=== PATIENT | male | born 1945 | race Caucasian/White ===

== ENCOUNTER 2016-12-21 08:37 | Emergency (ER) | payer MEDICARE, BC ==
[2016-12-21 09:06] VITALS: TEMP 96.9
[2016-12-21] MEDS ORDERED: SODIUM CHLORIDE 0.9% FLUSH 10 ML SOL IV PRN (09:22)
[2016-12-21] MEDS ORDERED: ALBUTEROL NEB SOL 2.5MG/3ML 1 VIAL SOL NEB ONE (09:22)
[2016-12-21] MEDS ORDERED: ALBUTEROL NEB SOL 2.5MG/3ML 1 VIAL SOL ONE (09:30)
[2016-12-21] MEDS ORDERED: ERTAPENEM SODIUM 1 GM PDS ONE (09:36)
[2016-12-21 10:06] LABS: HEMATOCRIT 44 % (39-53); MEAN CORPUSCULAR HGB CONC 35.1 gm/dl (32.0-36.0); MEAN CORPUSCULAR VOLUME 86 fL (80-100)
[2016-12-21 10:14] LABS: ALBUMIN 1.9 gm/dl (3.4-5.0); ALT 22 IU/L (14-63); CALCIUM 8.9 mg/dl (8.5-10.1); GLOM FILT RATE 55 mL/min (>60); SODIUM 130 mMol/L (136-145)
[2016-12-21] MEDS ORDERED: FUROSEMIDE 40 MG SOL IV ONE (10:14)
[2016-12-21] MEDS ORDERED: FUROSEMIDE 40 MG SOL ONE (10:14)
[2016-12-21 10:27] LABS: BASOPHILS % (MANUAL) 0 % (0-3); EOSINOPHILS % (MANUAL) 0 % (0-9); LYMPHOCYTES % (MANUAL) 5 % (10-50)
[2016-12-21] MEDS ORDERED: POTASSIUM CHLORIDE 10 MEQ TER PO ONE (10:27)
[2016-12-21 10:28] LABS: NORMAL RBCS PRESENT
[2016-12-21] MEDS ORDERED: CLOTRIMAZOLE 1% CREAM TOP ONE ×2 (10:42→11:00)
[2016-12-21] MEDS ORDERED: POTASSIUM CHLORIDE 10 MEQ TER ONE (10:52)
[2016-12-21 11:31] VITALS: BP 116/61; PULSE 118; RESP 32; O2SAT 94
[2016-12-22] MEDS ORDERED: ERTAPENEM SODIUM 1 GM PDS 1 GM in SODIUM CHLORIDE 0.9% 50 ML 50 ML IV SCH (09:00)
== END 2016-12-21 11:55 | disposition short-term general hospital (02) | DRG 178 ==
LOC: ED 08:37
DX: J85.0 Gangrene and necrosis of lung (principal); E46 Unspecified protein-calorie malnutrition; N17.9 Acute kidney failure, unspecified; E88.09 Other disorders of plasma-protein metabolism, not elsewhere classified; E87.6 Hypokalemia; J85.1 Abscess of lung with pneumonia; R63.4 Abnormal weight loss; R00.0 Tachycardia, unspecified; R06.02 Shortness of breath
CPT/HCPCS: 71020; 80053; 83880; 84484; 85007; 85027; 87040; 87070; 87205; 93005; 96365; 99285; J1335; J1940; J7603; A6232

== ENCOUNTER 2017-01-03 13:35 | Inpatient (IN) | payer MEDICARE, BC ==
[2017-01-03] MEDS ORDERED: PATIENT EDUCATION 1 MISC PRN (18:21)
[2017-01-03] MEDS ORDERED: ALBUTEROL HFA 60 PUFF/INHALER INH PRN (18:36)
[2017-01-03] MEDS ORDERED: ALBUTEROL NEB SOL 2.5MG/3ML 1 VIAL SOL NEB PRN (18:36)
[2017-01-03] MEDS ORDERED: GUAIFENESIN 200 MG/10 ML SOL PO SCH (18:45)
[2017-01-03] MEDS ORDERED: PIPERACILLIN/TAZOBACT 3.375 GM PDS IV ONE (18:53)
[2017-01-03] MEDS ORDERED: SODIUM CHLORIDE 0.9% 100 ML 100 ML IV ONE (18:53)
[2017-01-03] MEDS ORDERED: PIPERACILLIN/TAZOBACT 3.375 GM PDS IV SCH (19:00)
[2017-01-03] MEDS: HUMALOG PEN 100 U/ML SC SCH ×2 (20:27→21:33)
[2017-01-03] MEDS: SODIUM CHLORIDE 0.9% FLUSH 10 ML SOL IV SCH (20:41)
[2017-01-03] MEDS: PIPERACILLIN/TAZOBACT 3.375 GM 3 GM in SODIUM CHLORIDE 0.9% 100 ML 100 ML IV SCH (20:41)
[2017-01-03] MEDS: TAMSULOSIN HYDROCHLORIDE 0.4 MG CAP PO SCH (20:42)
[2017-01-03] MEDS: ATORVASTATIN 10 MG TAB PO SCH (20:42)
[2017-01-03] MEDS: ALBUTEROL/IPRATROPIUM 1 VIAL SOL INH SCH (20:44)
[2017-01-03] MEDS: FLUTICASONE/SALMETEROL 500/50 60 PUFF DSK INH SCH (20:54)
[2017-01-03] MEDS: GUAIFENESIN 600 MG PO SCH ×2 (20:55→21:46)
[2017-01-03] MEDS ORDERED: FUROSEMIDE 40 MG TAB PO SCH (21:00)
[2017-01-04] MEDS ORDERED: PIPERACILLIN/TAZOBACT 3.375 GM PDS IV ONE ×4 (00:39→18:13)
[2017-01-04] MEDS ORDERED: SODIUM CHLORIDE 0.9% 100 ML 100 ML IV ONE ×4 (00:40→18:13)
[2017-01-04] MEDS: SODIUM CHLORIDE 0.9% FLUSH 10 ML SOL IV SCH ×5 (01:05→18:57)
[2017-01-04] MEDS: PIPERACILLIN/TAZOBACT 3.375 GM 3 GM in SODIUM CHLORIDE 0.9% 100 ML 100 ML IV SCH ×2 (01:10→01:13)
[2017-01-04] MEDS: PIPERACILLIN/TAZOBACT 3.375 GM 3.375 GM in SODIUM CHLORIDE 0.9% 100 ML 100 ML IV SCH ×4 (01:14→18:57)
[2017-01-04] MEDS: HUMALOG PEN 100 U/ML SC SCH ×4 (06:57→21:01)
[2017-01-04] MEDS ORDERED: FUROSEMIDE 40 MG TAB PO SCH (09:00)
[2017-01-04] MEDS: FLUTICASONE/SALMETEROL 500/50 60 PUFF DSK INH SCH ×2 (09:16→20:31)
[2017-01-04] MEDS: FLUTICASONE PROPIONATE SPR NAS SCH (09:17)
[2017-01-04] MEDS: ASPIRIN EC 81 MG PO SCH (09:17)
[2017-01-04] MEDS: GUAIFENESIN 600 MG PO SCH ×2 (09:17→20:31)
[2017-01-04] MEDS: LORATADINE 10 MG TAB PO SCH (09:18)
[2017-01-04] MEDS: FUROSEMIDE 40 MG TAB PO SCH ×2 (09:19→13:26)
[2017-01-04] MEDS: MULTIVITAMIN2 1 EA TAB PO SCH (09:19)
[2017-01-04] MEDS: METOPROLOL TARTRATE 25 MG TAB PO SCH ×2 (09:24→20:32)
[2017-01-04] MEDS: ALBUTEROL/IPRATROPIUM 1 VIAL SOL INH SCH ×4 (09:25→20:43)
[2017-01-04] MEDS: BUPROPION XL 150 MG T24 PO SCH (11:53)
[2017-01-04] MEDS: TAMSULOSIN HYDROCHLORIDE 0.4 MG CAP PO SCH (20:31)
[2017-01-04] MEDS: ATORVASTATIN 10 MG TAB PO SCH (20:32)
[2017-01-05] MEDS ORDERED: SODIUM CHLORIDE 0.9% 100 ML 100 ML IV ONE ×4 (01:28→18:49)
[2017-01-05] MEDS ORDERED: PIPERACILLIN/TAZOBACT 3.375 GM PDS IV ONE ×4 (01:28→18:49)
[2017-01-05] MEDS: PIPERACILLIN/TAZOBACT 3.375 GM 3.375 GM in SODIUM CHLORIDE 0.9% 100 ML 100 ML IV SCH ×4 (01:44→19:01)
[2017-01-05] MEDS: SODIUM CHLORIDE 0.9% FLUSH 10 ML SOL IV SCH ×4 (02:15→20:20)
[2017-01-05] MEDS: HUMALOG PEN 100 U/ML SC SCH ×4 (06:31→20:21)
[2017-01-05] MEDS: BUPROPION XL 150 MG T24 PO SCH (09:07)
[2017-01-05] MEDS: FLUTICASONE/SALMETEROL 500/50 60 PUFF DSK INH SCH ×2 (09:07→20:13)
[2017-01-05] MEDS: METOPROLOL TARTRATE 25 MG TAB PO SCH ×2 (09:08→20:15)
[2017-01-05] MEDS: LORATADINE 10 MG TAB PO SCH (09:09)
[2017-01-05] MEDS: MULTIVITAMIN2 1 EA TAB PO SCH (09:10)
[2017-01-05] MEDS: FLUTICASONE PROPIONATE SPR NAS SCH (09:10)
[2017-01-05] MEDS: ASPIRIN EC 81 MG PO SCH (09:10)
[2017-01-05] MEDS: GUAIFENESIN 600 MG PO SCH ×2 (09:11→20:14)
[2017-01-05] MEDS: FUROSEMIDE 40 MG TAB PO SCH ×2 (09:11→14:07)
[2017-01-05] MEDS: ALBUTEROL/IPRATROPIUM 1 VIAL SOL INH SCH ×4 (09:24→20:13)
[2017-01-05] MEDS: TAMSULOSIN HYDROCHLORIDE 0.4 MG CAP PO SCH (20:14)
[2017-01-05] MEDS: ATORVASTATIN 10 MG TAB PO SCH (20:15)
[2017-01-06] MEDS ORDERED: PIPERACILLIN/TAZOBACT 3.375 GM PDS IV ONE ×4 (00:48→18:32)
[2017-01-06] MEDS ORDERED: SODIUM CHLORIDE 0.9% 100 ML 100 ML IV ONE ×4 (00:48→18:32)
[2017-01-06] MEDS: PIPERACILLIN/TAZOBACT 3.375 GM 3.375 GM in SODIUM CHLORIDE 0.9% 100 ML 100 ML IV SCH ×4 (00:57→18:59)
[2017-01-06] MEDS: SODIUM CHLORIDE 0.9% FLUSH 10 ML SOL IV SCH ×6 (00:58→20:13)
[2017-01-06] MEDS: HUMALOG PEN 100 U/ML SC SCH ×4 (06:44→20:17)
[2017-01-06] MEDS: FLUTICASONE PROPIONATE SPR NAS SCH (09:29)
[2017-01-06] MEDS: FLUTICASONE/SALMETEROL 500/50 60 PUFF DSK INH SCH ×2 (09:29→20:11)
[2017-01-06] MEDS: GUAIFENESIN 600 MG PO SCH ×2 (09:29→20:11)
[2017-01-06] MEDS: METOPROLOL TARTRATE 25 MG TAB PO SCH ×2 (09:30→20:12)
[2017-01-06] MEDS: BUPROPION XL 150 MG T24 PO SCH (09:30)
[2017-01-06] MEDS: LORATADINE 10 MG TAB PO SCH (09:30)
[2017-01-06] MEDS: FUROSEMIDE 40 MG TAB PO SCH ×2 (09:31→13:37)
[2017-01-06] MEDS: ASPIRIN EC 81 MG PO SCH (09:31)
[2017-01-06] MEDS: MULTIVITAMIN2 1 EA TAB PO SCH (09:32)
[2017-01-06] MEDS: ALBUTEROL/IPRATROPIUM 1 VIAL SOL INH SCH ×4 (09:32→20:10)
[2017-01-06] MEDS: ATORVASTATIN 10 MG TAB PO SCH (20:11)
[2017-01-06] MEDS: TAMSULOSIN HYDROCHLORIDE 0.4 MG CAP PO SCH (20:11)
[2017-01-07] MEDS: SODIUM CHLORIDE 0.9% FLUSH 10 ML SOL IV SCH ×5 (00:43→19:09)
[2017-01-07] MEDS: PIPERACILLIN/TAZOBACT 3.375 GM 3.375 GM in SODIUM CHLORIDE 0.9% 100 ML 100 ML IV SCH ×4 (00:43→19:09)
[2017-01-07] MEDS ORDERED: SODIUM CHLORIDE 0.9% 100 ML 100 ML IV ONE ×3 (06:26→13:02)
[2017-01-07] MEDS ORDERED: PIPERACILLIN/TAZOBACT 3.375 GM PDS IV ONE ×4 (06:26→18:54)
[2017-01-07] MEDS: HUMALOG PEN 100 U/ML SC SCH ×4 (06:43→20:16)
[2017-01-07] MEDS: ALBUTEROL/IPRATROPIUM 1 VIAL SOL INH SCH ×4 (09:15→20:10)
[2017-01-07] MEDS: FLUTICASONE PROPIONATE SPR NAS SCH (09:26)
[2017-01-07] MEDS: FLUTICASONE/SALMETEROL 500/50 60 PUFF DSK INH SCH ×2 (09:26→20:12)
[2017-01-07] MEDS: METOPROLOL TARTRATE 25 MG TAB PO SCH ×2 (09:27→20:13)
[2017-01-07] MEDS: GUAIFENESIN 600 MG PO SCH ×2 (09:27→20:12)
[2017-01-07] MEDS: MULTIVITAMIN2 1 EA TAB PO SCH (09:27)
[2017-01-07] MEDS: BUPROPION XL 150 MG T24 PO SCH (09:28)
[2017-01-07] MEDS: LORATADINE 10 MG TAB PO SCH (09:29)
[2017-01-07] MEDS: FUROSEMIDE 40 MG TAB PO SCH ×2 (09:29→13:16)
[2017-01-07] MEDS: ASPIRIN EC 81 MG PO SCH (09:30)
[2017-01-07 11:16] LABS: APPEARANCE,URINE Clear; BILIRUBIN,URINE NEGATIVE (NEGATIVE); COLOR,URINE Yellow; GLUCOSE, URINE (UA) NEGATIVE (NEGATIVE); KETONES,URINE NEGATIVE (NEGATIVE); LEUKOCYTE ESTERASE ,URINE NEGATIVE (NEGATIVE); NITRATE,URINE NEGATIVE (NEGATIVE); OCCULT BLOOD,URINE TRACE INTACT (NEG-TRACE); UROBILINOGEN,URINE 0.2 (0.2-1.0 EU)
[2017-01-07 11:23] LABS: RBC,URINE 0-2 (0-3AV/HPF); WBC,URINE 0-2 (0-5AV/HPF)
[2017-01-07] MEDS: TAMSULOSIN HYDROCHLORIDE 0.4 MG CAP PO SCH (20:12)
[2017-01-07] MEDS: ATORVASTATIN 10 MG TAB PO SCH (20:12)
[2017-01-08] MEDS ORDERED: PIPERACILLIN/TAZOBACT 3.375 GM PDS IV ONE ×4 (00:35→19:51)
[2017-01-08] MEDS ORDERED: SODIUM CHLORIDE 0.9% 100 ML 100 ML IV ONE ×4 (00:35→19:51)
[2017-01-08] MEDS: SODIUM CHLORIDE 0.9% FLUSH 10 ML SOL IV SCH ×6 (02:11→20:00)
[2017-01-08] MEDS: PIPERACILLIN/TAZOBACT 3.375 GM 3.375 GM in SODIUM CHLORIDE 0.9% 100 ML 100 ML IV SCH ×4 (02:11→20:00)
[2017-01-08] MEDS: HUMALOG PEN 100 U/ML SC SCH ×4 (07:03→20:37)
[2017-01-08 07:39] LABS: CALCIUM 8.3 mg/dl (8.5-10.1)
[2017-01-08 07:41] LABS: POTASSIUM 2.5 mMol/L (3.5-5.1)
[2017-01-08 07:46] LABS: BASOPHILS % (AUTO) 2 % (0-3); EOSINOPHILS % (AUTO) 2 % (0-9); HEMATOCRIT 34 % (39-53); MEAN CORPUSCULAR HGB CONC 35.4 gm/dl (32.0-36.0); MEAN CORPUSCULAR VOLUME 84 fL (80-100); MONOCYTES % (AUTO) 9.1 % (0-12); NEUTROPHILS % (AUTO) 61.1 % (37-80)
[2017-01-08] MEDS ORDERED: POTASSIUM CHLORIDE 2 MEQ/ML SOL IV SCH ×2 (08:15→16:30)
[2017-01-08] MEDS: FLUTICASONE/SALMETEROL 500/50 60 PUFF DSK INH SCH ×2 (08:34→20:05)
[2017-01-08] MEDS: ALBUTEROL/IPRATROPIUM 1 VIAL SOL INH SCH ×4 (08:38→20:18)
[2017-01-08] MEDS: FLUTICASONE PROPIONATE SPR NAS SCH (08:50)
[2017-01-08] MEDS: MULTIVITAMIN2 1 EA TAB PO SCH (08:50)
[2017-01-08] MEDS: ASPIRIN EC 81 MG PO SCH (08:50)
[2017-01-08] MEDS: LORATADINE 10 MG TAB PO SCH (08:50)
[2017-01-08] MEDS: BUPROPION XL 150 MG T24 PO SCH (08:51)
[2017-01-08] MEDS: METOPROLOL TARTRATE 25 MG TAB PO SCH ×2 (08:51→20:07)
[2017-01-08] MEDS: FUROSEMIDE 40 MG TAB PO SCH ×2 (08:52→14:12)
[2017-01-08] MEDS: GUAIFENESIN 600 MG PO SCH ×2 (08:53→20:45)
[2017-01-08] MEDS: POTASSIUM CHLORIDE 10 MEQ TER PO SCH ×2 (09:08→20:06)
[2017-01-08] MEDS ORDERED: POTASSIUM CHLORIDE 10 MEQ TER PO ONE (16:00)
[2017-01-08] MEDS ORDERED: POTASSIUM CHLORIDE 2 MEQ/ML SOL IV ONE (16:00)
[2017-01-08] MEDS: TAMSULOSIN HYDROCHLORIDE 0.4 MG CAP PO SCH (20:06)
[2017-01-08] MEDS: ATORVASTATIN 10 MG TAB PO SCH (20:07)
[2017-01-09] MEDS ORDERED: PIPERACILLIN/TAZOBACT 3.375 GM PDS IV ONE ×4 (01:21→19:46)
[2017-01-09] MEDS ORDERED: SODIUM CHLORIDE 0.9% 100 ML 100 ML IV ONE ×4 (01:21→19:46)
[2017-01-09] MEDS: PIPERACILLIN/TAZOBACT 3.375 GM 3.375 GM in SODIUM CHLORIDE 0.9% 100 ML 100 ML IV SCH ×4 (01:26→20:02)
[2017-01-09] MEDS: SODIUM CHLORIDE 0.9% FLUSH 10 ML SOL IV SCH ×4 (01:27→20:01)
[2017-01-09] MEDS: HUMALOG PEN 100 U/ML SC SCH ×4 (06:08→20:23)
[2017-01-09] MEDS: POTASSIUM CHLORIDE 10 MEQ TER PO SCH ×2 (09:27→20:06)
[2017-01-09] MEDS: ASPIRIN EC 81 MG PO SCH (09:27)
[2017-01-09] MEDS: MULTIVITAMIN2 1 EA TAB PO SCH (09:27)
[2017-01-09] MEDS: LORATADINE 10 MG TAB PO SCH (09:28)
[2017-01-09] MEDS: METOPROLOL TARTRATE 25 MG TAB PO SCH ×2 (09:28→20:23)
[2017-01-09] MEDS: GUAIFENESIN 600 MG PO SCH ×2 (09:29→20:05)
[2017-01-09] MEDS: ALBUTEROL/IPRATROPIUM 1 VIAL SOL INH SCH ×4 (09:29→20:04)
[2017-01-09] MEDS: FLUTICASONE PROPIONATE SPR NAS SCH (09:29)
[2017-01-09] MEDS: FUROSEMIDE 40 MG TAB PO SCH ×3 (09:34→12:57)
[2017-01-09] MEDS: OXYBUTYNIN CHLORIDE 5 MG TAB PO SCH ×2 (09:34→20:03)
[2017-01-09] MEDS: BUPROPION XL 300 MG T24 PO SCH (11:44)
[2017-01-09] MEDS: FLUTICASONE/SALMETEROL 500/50 60 PUFF DSK INH SCH ×2 (12:57→20:01)
[2017-01-09] MEDS: TAMSULOSIN HYDROCHLORIDE 0.4 MG CAP PO SCH (20:04)
[2017-01-09] MEDS: ATORVASTATIN 10 MG TAB PO SCH (20:06)
[2017-01-10] MEDS ORDERED: PIPERACILLIN/TAZOBACT 3.375 GM PDS IV ONE ×4 (00:17→18:39)
[2017-01-10] MEDS ORDERED: SODIUM CHLORIDE 0.9% 100 ML 100 ML IV ONE ×2 (00:17→06:22)
[2017-01-10] MEDS: PIPERACILLIN/TAZOBACT 3.375 GM 3.375 GM in SODIUM CHLORIDE 0.9% 100 ML 100 ML IV SCH ×4 (01:12→18:51)
[2017-01-10] MEDS: SODIUM CHLORIDE 0.9% FLUSH 10 ML SOL IV SCH ×5 (01:12→18:51)
[2017-01-10] MEDS: HUMALOG PEN 100 U/ML SC SCH ×4 (06:09→20:45)
[2017-01-10 07:41] LABS: CALCIUM 8.5 mg/dl (8.5-10.1); POTASSIUM 3.3 mMol/L (3.5-5.1)
[2017-01-10] MEDS: OXYBUTYNIN CHLORIDE 5 MG TAB PO SCH ×2 (08:57→20:44)
[2017-01-10] MEDS: FUROSEMIDE 40 MG TAB PO SCH ×2 (08:57→14:16)
[2017-01-10] MEDS: POTASSIUM CHLORIDE 10 MEQ TER PO SCH ×2 (08:57→20:46)
[2017-01-10] MEDS: LORATADINE 10 MG TAB PO SCH (08:57)
[2017-01-10] MEDS: METOPROLOL TARTRATE 25 MG TAB PO SCH ×2 (08:57→20:46)
[2017-01-10] MEDS: GUAIFENESIN 600 MG PO SCH ×2 (08:58→20:45)
[2017-01-10] MEDS: BUPROPION XL 300 MG T24 PO SCH (08:58)
[2017-01-10] MEDS: FLUTICASONE PROPIONATE SPR NAS SCH (08:58)
[2017-01-10] MEDS: MULTIVITAMIN2 1 EA TAB PO SCH (08:58)
[2017-01-10] MEDS: ASPIRIN EC 81 MG PO SCH (08:58)
[2017-01-10] MEDS: FLUTICASONE/SALMETEROL 500/50 60 PUFF DSK INH SCH ×2 (09:01→20:43)
[2017-01-10] MEDS: ALBUTEROL/IPRATROPIUM 1 VIAL SOL INH SCH ×4 (09:01→20:44)
[2017-01-10] MEDS: TAMSULOSIN HYDROCHLORIDE 0.4 MG CAP PO SCH (20:45)
[2017-01-10] MEDS: ATORVASTATIN 10 MG TAB PO SCH (20:47)
[2017-01-11] MEDS ORDERED: PIPERACILLIN/TAZOBACT 3.375 GM PDS IV ONE ×4 (00:41→17:04)
[2017-01-11] MEDS ORDERED: SODIUM CHLORIDE 0.9% 100 ML 100 ML IV ONE ×4 (00:41→17:04)
[2017-01-11] MEDS: PIPERACILLIN/TAZOBACT 3.375 GM 3.375 GM in SODIUM CHLORIDE 0.9% 100 ML 100 ML IV SCH ×4 (00:57→18:19)
[2017-01-11] MEDS: SODIUM CHLORIDE 0.9% FLUSH 10 ML SOL IV SCH ×4 (03:25→18:19)
[2017-01-11] MEDS: ACETAMINOPHEN 325 MG PO PRN (03:29)
[2017-01-11] MEDS: HUMALOG PEN 100 U/ML SC SCH ×4 (06:59→20:29)
[2017-01-11 07:40] LABS: BASOPHILS % (AUTO) 2 % (0-3); EOSINOPHILS % (AUTO) 2 % (0-9); HEMATOCRIT 32 % (39-53); MEAN CORPUSCULAR HGB CONC 35.7 gm/dl (32.0-36.0); MEAN CORPUSCULAR VOLUME 85 fL (80-100); MONOCYTES % (AUTO) 6.6 % (0-12); NEUTROPHILS % (AUTO) 68.1 % (37-80)
[2017-01-11] MEDS: FLUTICASONE/SALMETEROL 500/50 60 PUFF DSK INH SCH ×2 (09:18→20:27)
[2017-01-11] MEDS: ALBUTEROL/IPRATROPIUM 1 VIAL SOL INH SCH ×4 (09:18→20:29)
[2017-01-11] MEDS: GUAIFENESIN 600 MG PO SCH ×2 (09:21→20:28)
[2017-01-11] MEDS: FLUTICASONE PROPIONATE SPR NAS SCH (09:22)
[2017-01-11] MEDS: ASPIRIN EC 81 MG PO SCH (09:22)
[2017-01-11] MEDS: LORATADINE 10 MG TAB PO SCH (09:22)
[2017-01-11] MEDS: METOPROLOL TARTRATE 25 MG TAB PO SCH ×2 (09:23→20:29)
[2017-01-11] MEDS: MULTIVITAMIN2 1 EA TAB PO SCH (09:23)
[2017-01-11] MEDS: OXYBUTYNIN CHLORIDE 5 MG TAB PO SCH ×2 (09:25→20:27)
[2017-01-11] MEDS: FUROSEMIDE 40 MG TAB PO SCH ×2 (09:25→12:02)
[2017-01-11] MEDS: BUPROPION XL 300 MG T24 PO SCH (09:25)
[2017-01-11] MEDS: POTASSIUM CHLORIDE 10 MEQ TER PO SCH ×2 (09:28→20:29)
[2017-01-11] MEDS: TAMSULOSIN HYDROCHLORIDE 0.4 MG CAP PO SCH (20:28)
[2017-01-11] MEDS: ATORVASTATIN 10 MG TAB PO SCH (20:29)
[2017-01-12] MEDS ORDERED: SODIUM CHLORIDE 0.9% 100 ML 100 ML IV ONE ×5 (01:03→23:51)
[2017-01-12] MEDS ORDERED: PIPERACILLIN/TAZOBACT 3.375 GM PDS IV ONE ×5 (01:03→23:51)
[2017-01-12] MEDS: PIPERACILLIN/TAZOBACT 3.375 GM 3.375 GM in SODIUM CHLORIDE 0.9% 100 ML 100 ML IV SCH ×4 (01:09→19:43)
[2017-01-12] MEDS: SODIUM CHLORIDE 0.9% FLUSH 10 ML SOL IV SCH ×5 (01:20→19:44)
[2017-01-12] MEDS: HUMALOG PEN 100 U/ML SC SCH ×4 (06:43→20:48)
[2017-01-12] MEDS: FUROSEMIDE 40 MG TAB PO SCH ×2 (08:20→12:01)
[2017-01-12] MEDS: OXYBUTYNIN CHLORIDE 5 MG TAB PO SCH ×2 (08:39→20:20)
[2017-01-12] MEDS: LORATADINE 10 MG TAB PO SCH (08:39)
[2017-01-12] MEDS: ASPIRIN EC 81 MG PO SCH (08:39)
[2017-01-12] MEDS: POTASSIUM CHLORIDE 10 MEQ TER PO SCH ×2 (08:39→20:21)
[2017-01-12] MEDS: METOPROLOL TARTRATE 25 MG TAB PO SCH ×2 (08:40→20:21)
[2017-01-12] MEDS: BUPROPION XL 300 MG T24 PO SCH (08:43)
[2017-01-12] MEDS: MULTIVITAMIN2 1 EA TAB PO SCH (08:43)
[2017-01-12] MEDS: GUAIFENESIN 600 MG PO SCH ×2 (08:44→20:47)
[2017-01-12] MEDS: FLUTICASONE PROPIONATE SPR NAS SCH (08:46)
[2017-01-12] MEDS: ALBUTEROL/IPRATROPIUM 1 VIAL SOL INH SCH ×4 (08:57→20:30)
[2017-01-12] MEDS: FLUTICASONE/SALMETEROL 500/50 60 PUFF DSK INH SCH ×2 (09:02→20:18)
[2017-01-12] MEDS: SODIUM CHLORIDE 0.9% FLUSH 10 ML SOL IV PRN (20:17)
[2017-01-12] MEDS: TAMSULOSIN HYDROCHLORIDE 0.4 MG CAP PO SCH (20:20)
[2017-01-12] MEDS: ATORVASTATIN 10 MG TAB PO SCH (20:21)
[2017-01-13] MEDS: SODIUM CHLORIDE 0.9% FLUSH 10 ML SOL IV SCH ×4 (01:28→20:02)
[2017-01-13] MEDS: PIPERACILLIN/TAZOBACT 3.375 GM 3.375 GM in SODIUM CHLORIDE 0.9% 100 ML 100 ML IV SCH ×4 (01:28→19:54)
[2017-01-13] MEDS ORDERED: SODIUM CHLORIDE 0.9% 100 ML 100 ML IV ONE ×3 (05:47→19:38)
[2017-01-13] MEDS ORDERED: PIPERACILLIN/TAZOBACT 3.375 GM PDS IV ONE ×3 (05:47→19:38)
[2017-01-13] MEDS: HUMALOG PEN 100 U/ML SC SCH ×4 (06:28→20:07)
[2017-01-13] MEDS: GUAIFENESIN 600 MG PO SCH ×2 (08:35→20:11)
[2017-01-13] MEDS: POTASSIUM CHLORIDE 10 MEQ TER PO SCH ×2 (08:36→20:07)
[2017-01-13] MEDS: ASPIRIN EC 81 MG PO SCH (08:36)
[2017-01-13] MEDS: OXYBUTYNIN CHLORIDE 5 MG TAB PO SCH ×2 (08:36→20:05)
[2017-01-13] MEDS: FLUTICASONE PROPIONATE SPR NAS SCH (08:37)
[2017-01-13] MEDS: MULTIVITAMIN2 1 EA TAB PO SCH (08:38)
[2017-01-13] MEDS: FUROSEMIDE 40 MG TAB PO SCH ×2 (08:38→12:10)
[2017-01-13] MEDS: LORATADINE 10 MG TAB PO SCH (08:38)
[2017-01-13] MEDS: BUPROPION XL 300 MG T24 PO SCH (08:38)
[2017-01-13] MEDS: METOPROLOL TARTRATE 25 MG TAB PO SCH ×2 (08:39→20:08)
[2017-01-13] MEDS: ALBUTEROL/IPRATROPIUM 1 VIAL SOL INH SCH ×4 (08:40→20:03)
[2017-01-13] MEDS: FLUTICASONE/SALMETEROL 500/50 60 PUFF DSK INH SCH ×2 (08:46→20:03)
[2017-01-13] MEDS: TAMSULOSIN HYDROCHLORIDE 0.4 MG CAP PO SCH (20:06)
[2017-01-13] MEDS: ATORVASTATIN 10 MG TAB PO SCH (20:08)
[2017-01-14] MEDS ORDERED: SODIUM CHLORIDE 0.9% 100 ML 100 ML IV ONE ×4 (01:48→17:47)
[2017-01-14] MEDS ORDERED: PIPERACILLIN/TAZOBACT 3.375 GM PDS IV ONE ×4 (01:48→17:47)
[2017-01-14] MEDS: PIPERACILLIN/TAZOBACT 3.375 GM 3.375 GM in SODIUM CHLORIDE 0.9% 100 ML 100 ML IV SCH ×4 (01:54→18:15)
[2017-01-14] MEDS: SODIUM CHLORIDE 0.9% FLUSH 10 ML SOL IV SCH ×4 (01:57→18:15)
[2017-01-14] MEDS: HUMALOG PEN 100 U/ML SC SCH ×3 (06:07→16:00)
[2017-01-14] MEDS: FUROSEMIDE 40 MG TAB PO SCH ×2 (07:28→12:04)
[2017-01-14] MEDS: ASPIRIN EC 81 MG PO SCH (09:06)
[2017-01-14] MEDS: FLUTICASONE/SALMETEROL 500/50 60 PUFF DSK INH SCH ×2 (09:06→20:52)
[2017-01-14] MEDS: OXYBUTYNIN CHLORIDE 5 MG TAB PO SCH ×2 (09:07→20:53)
[2017-01-14] MEDS: LORATADINE 10 MG TAB PO SCH (09:07)
[2017-01-14] MEDS: FLUTICASONE PROPIONATE SPR NAS SCH (09:09)
[2017-01-14] MEDS: GUAIFENESIN 600 MG PO SCH ×2 (09:10→20:54)
[2017-01-14] MEDS: POTASSIUM CHLORIDE 10 MEQ TER PO SCH ×2 (09:10→20:54)
[2017-01-14] MEDS: ALBUTEROL/IPRATROPIUM 1 VIAL SOL INH SCH ×4 (09:11→20:56)
[2017-01-14] MEDS: MULTIVITAMIN2 1 EA TAB PO SCH (09:11)
[2017-01-14] MEDS: METOPROLOL TARTRATE 25 MG TAB PO SCH ×2 (09:12→20:55)
[2017-01-14] MEDS: BUPROPION XL 300 MG T24 PO SCH (09:13)
[2017-01-14] MEDS: TAMSULOSIN HYDROCHLORIDE 0.4 MG CAP PO SCH (20:53)
[2017-01-14] MEDS: ATORVASTATIN 10 MG TAB PO SCH (20:54)
[2017-01-15] MEDS: HUMALOG PEN 100 U/ML SC SCH ×2 (01:49→06:28)
[2017-01-15] MEDS: SODIUM CHLORIDE 0.9% FLUSH 10 ML SOL IV SCH ×4 (01:50→18:50)
[2017-01-15] MEDS: PIPERACILLIN/TAZOBACT 3.375 GM 3.375 GM in SODIUM CHLORIDE 0.9% 100 ML 100 ML IV SCH ×4 (01:50→18:50)
[2017-01-15 07:48] LABS: BASOPHILS % (AUTO) 1 % (0-3); EOSINOPHILS % (AUTO) 1 % (0-9); HEMATOCRIT 33 % (39-53); MEAN CORPUSCULAR VOLUME 85 fL (80-100); MONOCYTES % (AUTO) 8.1 % (0-12); NEUTROPHILS % (AUTO) 73.2 % (37-80)
[2017-01-15 08:53] LABS: CALCIUM 8.6 mg/dl (8.5-10.1); POTASSIUM 4.2 mMol/L (3.5-5.1)
[2017-01-15] MEDS: FLUTICASONE/SALMETEROL 500/50 60 PUFF DSK INH SCH ×2 (09:15→20:01)
[2017-01-15] MEDS: FUROSEMIDE 40 MG TAB PO SCH ×2 (09:15→12:02)
[2017-01-15] MEDS: ASPIRIN EC 81 MG PO SCH (09:16)
[2017-01-15] MEDS: FLUTICASONE PROPIONATE SPR NAS SCH (09:17)
[2017-01-15] MEDS: GUAIFENESIN 600 MG PO SCH ×2 (09:17→20:03)
[2017-01-15] MEDS: POTASSIUM CHLORIDE 10 MEQ TER PO SCH ×2 (09:18→20:03)
[2017-01-15] MEDS: METOPROLOL TARTRATE 25 MG TAB PO SCH ×2 (09:18→20:05)
[2017-01-15] MEDS: MULTIVITAMIN2 1 EA TAB PO SCH (09:19)
[2017-01-15] MEDS: ALBUTEROL/IPRATROPIUM 1 VIAL SOL INH SCH ×4 (09:22→20:02)
[2017-01-15] MEDS: BUPROPION XL 300 MG T24 PO SCH (12:01)
[2017-01-15] MEDS ORDERED: PIPERACILLIN/TAZOBACT 3.375 GM PDS IV ONE ×2 (13:31→18:25)
[2017-01-15] MEDS ORDERED: SODIUM CHLORIDE 0.9% 100 ML 100 ML IV ONE ×2 (13:31→18:25)
[2017-01-15] MEDS: TAMSULOSIN HYDROCHLORIDE 0.4 MG CAP PO SCH (20:03)
[2017-01-15] MEDS: ATORVASTATIN 10 MG TAB PO SCH (20:04)
[2017-01-15] MEDS: SODIUM CHLORIDE 0.9% FLUSH 10 ML SOL IV PRN (20:05)
[2017-01-16] MEDS ORDERED: PIPERACILLIN/TAZOBACT 3.375 GM PDS IV ONE ×4 (00:19→17:10)
[2017-01-16] MEDS ORDERED: SODIUM CHLORIDE 0.9% 100 ML 100 ML IV ONE ×4 (00:19→17:10)
[2017-01-16] MEDS: PIPERACILLIN/TAZOBACT 3.375 GM 3.375 GM in SODIUM CHLORIDE 0.9% 100 ML 100 ML IV SCH ×4 (00:48→19:02)
[2017-01-16] MEDS: SODIUM CHLORIDE 0.9% FLUSH 10 ML SOL IV SCH ×4 (00:48→19:02)
[2017-01-16] MEDS: GUAIFENESIN 600 MG PO SCH ×2 (08:57→20:39)
[2017-01-16] MEDS: FLUTICASONE/SALMETEROL 500/50 60 PUFF DSK INH SCH ×2 (08:57→20:48)
[2017-01-16] MEDS: ASPIRIN EC 81 MG PO SCH (08:58)
[2017-01-16] MEDS: MULTIVITAMIN2 1 EA TAB PO SCH (08:59)
[2017-01-16] MEDS: METOPROLOL TARTRATE 25 MG TAB PO SCH ×2 (08:59→20:41)
[2017-01-16] MEDS: FLUTICASONE PROPIONATE SPR NAS SCH (08:59)
[2017-01-16] MEDS: FUROSEMIDE 40 MG TAB PO SCH ×2 (09:00→12:24)
[2017-01-16] MEDS: BUPROPION XL 300 MG T24 PO SCH (09:00)
[2017-01-16] MEDS: POTASSIUM CHLORIDE 10 MEQ TER PO SCH ×2 (09:02→20:39)
[2017-01-16] MEDS: ALBUTEROL/IPRATROPIUM 1 VIAL SOL INH SCH ×4 (09:03→20:46)
[2017-01-16] MEDS: ATORVASTATIN 10 MG TAB PO SCH (20:40)
[2017-01-16] MEDS: TAMSULOSIN HYDROCHLORIDE 0.4 MG CAP PO SCH (20:41)
[2017-01-17] MEDS ORDERED: PIPERACILLIN/TAZOBACT 3.375 GM PDS IV ONE ×5 (00:55→23:48)
[2017-01-17] MEDS ORDERED: SODIUM CHLORIDE 0.9% 100 ML 100 ML IV ONE ×5 (00:55→23:48)
[2017-01-17] MEDS: PIPERACILLIN/TAZOBACT 3.375 GM 3.375 GM in SODIUM CHLORIDE 0.9% 100 ML 100 ML IV SCH ×4 (01:02→18:31)
[2017-01-17] MEDS: SODIUM CHLORIDE 0.9% FLUSH 10 ML SOL IV SCH ×4 (01:02→18:31)
[2017-01-17] MEDS: FUROSEMIDE 40 MG TAB PO SCH ×2 (09:13→12:34)
[2017-01-17] MEDS: ASPIRIN EC 81 MG PO SCH (09:14)
[2017-01-17] MEDS: ALBUTEROL/IPRATROPIUM 1 VIAL SOL INH SCH ×4 (09:14→20:29)
[2017-01-17] MEDS: FLUTICASONE PROPIONATE SPR NAS SCH (09:15)
[2017-01-17] MEDS: GUAIFENESIN 600 MG PO SCH ×2 (09:16→20:27)
[2017-01-17] MEDS: METOPROLOL TARTRATE 25 MG TAB PO SCH ×2 (09:17→20:28)
[2017-01-17] MEDS: POTASSIUM CHLORIDE 10 MEQ TER PO SCH ×2 (09:17→20:26)
[2017-01-17] MEDS: MULTIVITAMIN2 1 EA TAB PO SCH (09:18)
[2017-01-17] MEDS: BUPROPION XL 300 MG T24 PO SCH (09:18)
[2017-01-17] MEDS: FLUTICASONE/SALMETEROL 500/50 60 PUFF DSK INH SCH ×2 (09:24→20:26)
[2017-01-17] MEDS: TAMSULOSIN HYDROCHLORIDE 0.4 MG CAP PO SCH (20:27)
[2017-01-17] MEDS: ATORVASTATIN 10 MG TAB PO SCH (20:28)
[2017-01-18] MEDS: PIPERACILLIN/TAZOBACT 3.375 GM 3.375 GM in SODIUM CHLORIDE 0.9% 100 ML 100 ML IV SCH ×4 (00:35→18:23)
[2017-01-18] MEDS: SODIUM CHLORIDE 0.9% FLUSH 10 ML SOL IV SCH ×4 (00:36→18:23)
[2017-01-18] MEDS ORDERED: PIPERACILLIN/TAZOBACT 3.375 GM PDS IV ONE ×3 (05:26→17:11)
[2017-01-18] MEDS ORDERED: SODIUM CHLORIDE 0.9% 100 ML 100 ML IV ONE ×3 (05:26→17:11)
[2017-01-18 07:20] LABS: BASOPHILS % (AUTO) 2 % (0-3); EOSINOPHILS % (AUTO) 4 % (0-9); HEMATOCRIT 33 % (39-53); MEAN CORPUSCULAR HGB CONC 35.3 gm/dl (32.0-36.0); MEAN CORPUSCULAR VOLUME 85 fL (80-100); MONOCYTES % (AUTO) 7.4 % (0-12); NEUTROPHILS % (AUTO) 64.8 % (37-80)
[2017-01-18] MEDS: FUROSEMIDE 40 MG TAB PO SCH ×2 (08:10→11:50)
[2017-01-18] MEDS: ALBUTEROL/IPRATROPIUM 1 VIAL SOL INH SCH ×4 (08:10→20:26)
[2017-01-18] MEDS: ASPIRIN EC 81 MG PO SCH (08:23)
[2017-01-18] MEDS: GUAIFENESIN 600 MG PO SCH ×2 (08:23→20:28)
[2017-01-18] MEDS: POTASSIUM CHLORIDE 10 MEQ TER PO SCH ×2 (08:23→20:27)
[2017-01-18] MEDS: METOPROLOL TARTRATE 25 MG TAB PO SCH ×2 (08:24→20:28)
[2017-01-18] MEDS: MULTIVITAMIN2 1 EA TAB PO SCH (08:24)
[2017-01-18] MEDS: FLUTICASONE PROPIONATE SPR NAS SCH (08:51)
[2017-01-18] MEDS: FLUTICASONE/SALMETEROL 500/50 60 PUFF DSK INH SCH ×2 (08:51→20:26)
[2017-01-18] MEDS: BUPROPION XL 300 MG T24 PO SCH (09:29)
[2017-01-18] MEDS: TAMSULOSIN HYDROCHLORIDE 0.4 MG CAP PO SCH (20:29)
[2017-01-18] MEDS: ATORVASTATIN 10 MG TAB PO SCH (20:29)
[2017-01-19] MEDS ORDERED: PIPERACILLIN/TAZOBACT 3.375 GM PDS IV ONE ×4 (01:00→18:07)
[2017-01-19] MEDS ORDERED: SODIUM CHLORIDE 0.9% 100 ML 100 ML IV ONE ×4 (01:01→18:07)
[2017-01-19] MEDS: PIPERACILLIN/TAZOBACT 3.375 GM 3.375 GM in SODIUM CHLORIDE 0.9% 100 ML 100 ML IV SCH ×4 (01:17→18:15)
[2017-01-19] MEDS: SODIUM CHLORIDE 0.9% FLUSH 10 ML SOL IV SCH ×4 (01:18→18:15)
[2017-01-19] MEDS: SODIUM CHLORIDE 0.9% FLUSH 10 ML SOL IV PRN ×2 (07:52→08:30)
[2017-01-19] MEDS: FUROSEMIDE 40 MG TAB PO SCH ×2 (08:10→11:44)
[2017-01-19] MEDS: ASPIRIN EC 81 MG PO SCH (08:11)
[2017-01-19] MEDS: FLUTICASONE PROPIONATE SPR NAS SCH (08:11)
[2017-01-19] MEDS: FLUTICASONE/SALMETEROL 500/50 60 PUFF DSK INH SCH ×2 (08:11→20:43)
[2017-01-19] MEDS: GUAIFENESIN 600 MG PO SCH ×2 (08:12→20:45)
[2017-01-19] MEDS: POTASSIUM CHLORIDE 10 MEQ TER PO SCH ×2 (08:12→20:45)
[2017-01-19] MEDS: METOPROLOL TARTRATE 25 MG TAB PO SCH ×2 (08:13→20:46)
[2017-01-19] MEDS: BUPROPION XL 300 MG T24 PO SCH (08:13)
[2017-01-19] MEDS: MULTIVITAMIN2 1 EA TAB PO SCH (08:13)
[2017-01-19] MEDS: ALBUTEROL/IPRATROPIUM 1 VIAL SOL INH SCH ×4 (08:18→20:40)
[2017-01-19] MEDS: TAMSULOSIN HYDROCHLORIDE 0.4 MG CAP PO SCH (20:44)
[2017-01-19] MEDS: ATORVASTATIN 10 MG TAB PO SCH (20:45)
[2017-01-20] MEDS ORDERED: PIPERACILLIN/TAZOBACT 3.375 GM PDS IV ONE ×4 (00:40→17:05)
[2017-01-20] MEDS ORDERED: SODIUM CHLORIDE 0.9% 100 ML 100 ML IV ONE ×4 (00:42→17:05)
[2017-01-20] MEDS: PIPERACILLIN/TAZOBACT 3.375 GM 3.375 GM in SODIUM CHLORIDE 0.9% 100 ML 100 ML IV SCH ×4 (00:56→18:20)
[2017-01-20] MEDS: SODIUM CHLORIDE 0.9% FLUSH 10 ML SOL IV SCH ×4 (00:56→18:20)
[2017-01-20] MEDS: FUROSEMIDE 40 MG TAB PO SCH ×2 (08:15→11:45)
[2017-01-20] MEDS: ASPIRIN EC 81 MG PO SCH (08:15)
[2017-01-20] MEDS: FLUTICASONE PROPIONATE SPR NAS SCH (08:16)
[2017-01-20] MEDS: GUAIFENESIN 600 MG PO SCH ×2 (08:16→20:26)
[2017-01-20] MEDS: POTASSIUM CHLORIDE 10 MEQ TER PO SCH ×2 (08:17→20:26)
[2017-01-20] MEDS: BUPROPION XL 300 MG T24 PO SCH (08:18)
[2017-01-20] MEDS: MULTIVITAMIN2 1 EA TAB PO SCH (08:18)
[2017-01-20] MEDS: METOPROLOL TARTRATE 25 MG TAB PO SCH ×2 (08:18→20:25)
[2017-01-20] MEDS: FLUTICASONE/SALMETEROL 500/50 60 PUFF DSK INH SCH ×2 (08:22→20:25)
[2017-01-20] MEDS: ALBUTEROL/IPRATROPIUM 1 VIAL SOL INH SCH ×4 (08:42→20:23)
[2017-01-20] MEDS: ATORVASTATIN 10 MG TAB PO SCH (20:27)
[2017-01-20] MEDS: TAMSULOSIN HYDROCHLORIDE 0.4 MG CAP PO SCH (20:27)
[2017-01-21] MEDS ORDERED: PIPERACILLIN/TAZOBACT 3.375 GM PDS IV ONE ×4 (00:21→20:34)
[2017-01-21] MEDS ORDERED: SODIUM CHLORIDE 0.9% 100 ML 100 ML IV ONE ×4 (00:21→20:34)
[2017-01-21] MEDS: PIPERACILLIN/TAZOBACT 3.375 GM 3.375 GM in SODIUM CHLORIDE 0.9% 100 ML 100 ML IV SCH ×4 (00:54→20:39)
[2017-01-21] MEDS: SODIUM CHLORIDE 0.9% FLUSH 10 ML SOL IV SCH ×4 (00:54→18:15)
[2017-01-21] MEDS: ACETAMINOPHEN 325 MG PO PRN (01:02)
[2017-01-21] MEDS: FUROSEMIDE 40 MG TAB PO SCH ×2 (07:46→11:43)
[2017-01-21] MEDS: FLUTICASONE/SALMETEROL 500/50 60 PUFF DSK INH SCH ×2 (08:24→20:29)
[2017-01-21] MEDS: ASPIRIN EC 81 MG PO SCH (08:24)
[2017-01-21] MEDS: FLUTICASONE PROPIONATE SPR NAS SCH (08:25)
[2017-01-21] MEDS: POTASSIUM CHLORIDE 10 MEQ TER PO SCH ×2 (08:25→20:19)
[2017-01-21] MEDS: GUAIFENESIN 600 MG PO SCH ×2 (08:25→20:20)
[2017-01-21] MEDS: MULTIVITAMIN2 1 EA TAB PO SCH (08:26)
[2017-01-21] MEDS: METOPROLOL TARTRATE 25 MG TAB PO SCH ×2 (08:26→20:21)
[2017-01-21] MEDS: ALBUTEROL/IPRATROPIUM 1 VIAL SOL INH SCH ×4 (08:34→20:30)
[2017-01-21] MEDS: BUPROPION XL 300 MG T24 PO SCH (13:01)
[2017-01-21] MEDS: TAMSULOSIN HYDROCHLORIDE 0.4 MG CAP PO SCH (20:20)
[2017-01-21] MEDS: ATORVASTATIN 10 MG TAB PO SCH (20:21)
[2017-01-21] MEDS: SODIUM CHLORIDE 0.9% FLUSH 10 ML SOL IV PRN (20:46)
[2017-01-22] MEDS: SODIUM CHLORIDE 0.9% FLUSH 10 ML SOL IV SCH ×5 (02:32→22:51)
[2017-01-22] MEDS ORDERED: PIPERACILLIN/TAZOBACT 3.375 GM PDS IV ONE ×4 (02:45→20:48)
[2017-01-22] MEDS ORDERED: SODIUM CHLORIDE 0.9% 100 ML 100 ML IV ONE ×4 (02:45→20:48)
[2017-01-22] MEDS: SODIUM CHLORIDE 0.9% FLUSH 10 ML SOL IV PRN ×3 (03:09→09:42)
[2017-01-22] MEDS: PIPERACILLIN/TAZOBACT 3.375 GM 3.375 GM in SODIUM CHLORIDE 0.9% 100 ML 100 ML IV SCH ×4 (03:09→21:04)
[2017-01-22 07:13] LABS: BASOPHILS % (AUTO) 2 % (0-3); EOSINOPHILS % (AUTO) 5 % (0-9); HEMATOCRIT 33 % (39-53); MEAN CORPUSCULAR HGB CONC 34.5 gm/dl (32.0-36.0); MEAN CORPUSCULAR VOLUME 85 fL (80-100); MONOCYTES % (AUTO) 8.6 % (0-12); NEUTROPHILS % (AUTO) 58.4 % (37-80)
[2017-01-22] MEDS: FUROSEMIDE 40 MG TAB PO SCH ×2 (08:07→11:45)
[2017-01-22] MEDS: ASPIRIN EC 81 MG PO SCH (09:11)
[2017-01-22] MEDS: GUAIFENESIN 600 MG PO SCH ×2 (09:11→21:02)
[2017-01-22] MEDS: FLUTICASONE PROPIONATE SPR NAS SCH (09:11)
[2017-01-22] MEDS: METOPROLOL TARTRATE 25 MG TAB PO SCH ×2 (09:13→21:03)
[2017-01-22] MEDS: POTASSIUM CHLORIDE 10 MEQ TER PO SCH ×2 (09:13→21:03)
[2017-01-22] MEDS: BUPROPION XL 300 MG T24 PO SCH (09:14)
[2017-01-22] MEDS: MULTIVITAMIN2 1 EA TAB PO SCH (09:14)
[2017-01-22] MEDS: ALBUTEROL/IPRATROPIUM 1 VIAL SOL INH SCH ×4 (09:20→21:04)
[2017-01-22] MEDS: FLUTICASONE/SALMETEROL 500/50 60 PUFF DSK INH SCH ×2 (09:38→21:01)
[2017-01-22] MEDS: TAMSULOSIN HYDROCHLORIDE 0.4 MG CAP PO SCH (21:01)
[2017-01-22] MEDS: ATORVASTATIN 10 MG TAB PO SCH (21:03)
[2017-01-23] MEDS ORDERED: PIPERACILLIN/TAZOBACT 3.375 GM PDS IV ONE ×4 (02:42→19:57)
[2017-01-23] MEDS ORDERED: SODIUM CHLORIDE 0.9% 100 ML 100 ML IV ONE ×4 (02:42→19:57)
[2017-01-23] MEDS: PIPERACILLIN/TAZOBACT 3.375 GM 3.375 GM in SODIUM CHLORIDE 0.9% 100 ML 100 ML IV SCH ×4 (02:54→20:14)
[2017-01-23] MEDS: SODIUM CHLORIDE 0.9% FLUSH 10 ML SOL IV SCH ×4 (02:54→20:14)
[2017-01-23] MEDS: FLUTICASONE/SALMETEROL 500/50 60 PUFF DSK INH SCH ×2 (08:09→20:29)
[2017-01-23] MEDS: FLUTICASONE PROPIONATE SPR NAS SCH (08:09)
[2017-01-23] MEDS: ASPIRIN EC 81 MG PO SCH (08:09)
[2017-01-23] MEDS: FUROSEMIDE 40 MG TAB PO SCH ×2 (08:09→11:52)
[2017-01-23] MEDS: GUAIFENESIN 600 MG PO SCH ×2 (08:10→20:17)
[2017-01-23] MEDS: METOPROLOL TARTRATE 25 MG TAB PO SCH ×2 (08:10→20:18)
[2017-01-23] MEDS: POTASSIUM CHLORIDE 10 MEQ TER PO SCH ×2 (08:10→20:17)
[2017-01-23] MEDS: BUPROPION XL 300 MG T24 PO SCH (08:11)
[2017-01-23] MEDS: MULTIVITAMIN2 1 EA TAB PO SCH (08:11)
[2017-01-23] MEDS: ALBUTEROL/IPRATROPIUM 1 VIAL SOL INH SCH ×4 (09:04→20:20)
[2017-01-23] MEDS: ATORVASTATIN 10 MG TAB PO SCH (20:18)
[2017-01-23] MEDS: TAMSULOSIN HYDROCHLORIDE 0.4 MG CAP PO SCH (20:18)
[2017-01-24] MEDS ORDERED: SODIUM CHLORIDE 0.9% 100 ML 100 ML IV ONE ×4 (03:24→19:57)
[2017-01-24] MEDS ORDERED: PIPERACILLIN/TAZOBACT 3.375 GM PDS IV ONE ×4 (03:24→19:57)
[2017-01-24] MEDS: PIPERACILLIN/TAZOBACT 3.375 GM 3.375 GM in SODIUM CHLORIDE 0.9% 100 ML 100 ML IV SCH ×4 (03:34→20:23)
[2017-01-24] MEDS: SODIUM CHLORIDE 0.9% FLUSH 10 ML SOL IV SCH ×4 (03:34→20:23)
[2017-01-24] MEDS: FLUTICASONE/SALMETEROL 500/50 60 PUFF DSK INH SCH ×2 (08:36→20:25)
[2017-01-24] MEDS: FUROSEMIDE 40 MG TAB PO SCH ×2 (08:36→11:57)
[2017-01-24] MEDS: FLUTICASONE PROPIONATE SPR NAS SCH (08:36)
[2017-01-24] MEDS: ASPIRIN EC 81 MG PO SCH (08:36)
[2017-01-24] MEDS: METOPROLOL TARTRATE 25 MG TAB PO SCH ×2 (08:37→20:28)
[2017-01-24] MEDS: BUPROPION XL 300 MG T24 PO SCH (08:37)
[2017-01-24] MEDS: GUAIFENESIN 600 MG PO SCH ×2 (08:37→20:26)
[2017-01-24] MEDS: MULTIVITAMIN2 1 EA TAB PO SCH (08:37)
[2017-01-24] MEDS: POTASSIUM CHLORIDE 10 MEQ TER PO SCH ×2 (08:37→20:27)
[2017-01-24] MEDS: ALBUTEROL/IPRATROPIUM 1 VIAL SOL INH SCH ×4 (08:46→20:15)
[2017-01-24] MEDS: TAMSULOSIN HYDROCHLORIDE 0.4 MG CAP PO SCH (20:26)
[2017-01-24] MEDS: ATORVASTATIN 10 MG TAB PO SCH (20:28)
[2017-01-25] MEDS ORDERED: SODIUM CHLORIDE 0.9% 100 ML 100 ML IV ONE ×3 (02:50→14:36)
[2017-01-25] MEDS ORDERED: PIPERACILLIN/TAZOBACT 3.375 GM PDS IV ONE ×4 (02:50→21:05)
[2017-01-25] MEDS: PIPERACILLIN/TAZOBACT 3.375 GM 3.375 GM in SODIUM CHLORIDE 0.9% 100 ML 100 ML IV SCH ×4 (02:59→21:25)
[2017-01-25] MEDS: SODIUM CHLORIDE 0.9% FLUSH 10 ML SOL IV SCH ×4 (02:59→21:25)
[2017-01-25 07:53] LABS: BASOPHILS % (AUTO) 2 % (0-3); EOSINOPHILS % (AUTO) 3 % (0-9); HEMATOCRIT 35 % (39-53); MEAN CORPUSCULAR HGB CONC 33.9 gm/dl (32.0-36.0); MEAN CORPUSCULAR VOLUME 86 fL (80-100); MONOCYTES % (AUTO) 6.6 % (0-12); NEUTROPHILS % (AUTO) 66.1 % (37-80)
[2017-01-25] MEDS: FUROSEMIDE 40 MG TAB PO SCH ×2 (08:30→11:52)
[2017-01-25] MEDS: FLUTICASONE/SALMETEROL 500/50 60 PUFF DSK INH SCH ×2 (09:42→21:35)
[2017-01-25] MEDS: GUAIFENESIN 600 MG PO SCH ×2 (09:44→21:25)
[2017-01-25] MEDS: FLUTICASONE PROPIONATE SPR NAS SCH (09:45)
[2017-01-25] MEDS: MULTIVITAMIN2 1 EA TAB PO SCH (09:45)
[2017-01-25] MEDS: ASPIRIN EC 81 MG PO SCH (09:45)
[2017-01-25] MEDS: BUPROPION XL 300 MG T24 PO SCH (09:46)
[2017-01-25] MEDS: METOPROLOL TARTRATE 25 MG TAB PO SCH ×2 (09:46→21:26)
[2017-01-25] MEDS: POTASSIUM CHLORIDE 10 MEQ TER PO SCH ×2 (09:47→21:24)
[2017-01-25] MEDS: ALBUTEROL/IPRATROPIUM 1 VIAL SOL INH SCH ×4 (10:00→21:23)
[2017-01-25] MEDS: ATORVASTATIN 10 MG TAB PO SCH (21:23)
[2017-01-25] MEDS: TAMSULOSIN HYDROCHLORIDE 0.4 MG CAP PO SCH (21:24)
[2017-01-26] MEDS ORDERED: PIPERACILLIN/TAZOBACT 3.375 GM PDS IV ONE ×4 (03:00→19:33)
[2017-01-26] MEDS ORDERED: SODIUM CHLORIDE 0.9% 100 ML 100 ML IV ONE ×4 (03:00→19:33)
[2017-01-26] MEDS: PIPERACILLIN/TAZOBACT 3.375 GM 3.375 GM in SODIUM CHLORIDE 0.9% 100 ML 100 ML IV SCH ×4 (03:07→20:22)
[2017-01-26] MEDS: SODIUM CHLORIDE 0.9% FLUSH 10 ML SOL IV SCH ×4 (03:08→20:22)
[2017-01-26] MEDS: FLUTICASONE/SALMETEROL 500/50 60 PUFF DSK INH SCH ×2 (09:29→20:22)
[2017-01-26] MEDS: FUROSEMIDE 40 MG TAB PO SCH ×2 (09:30→12:31)
[2017-01-26] MEDS: ASPIRIN EC 81 MG PO SCH (09:30)
[2017-01-26] MEDS: FLUTICASONE PROPIONATE SPR NAS SCH (09:30)
[2017-01-26] MEDS: GUAIFENESIN 600 MG PO SCH ×2 (09:31→20:23)
[2017-01-26] MEDS: POTASSIUM CHLORIDE 10 MEQ TER PO SCH ×2 (09:31→20:23)
[2017-01-26] MEDS: METOPROLOL TARTRATE 25 MG TAB PO SCH ×2 (09:34→20:25)
[2017-01-26] MEDS: MULTIVITAMIN2 1 EA TAB PO SCH (09:34)
[2017-01-26] MEDS: ALBUTEROL/IPRATROPIUM 1 VIAL SOL INH SCH ×4 (09:35→20:22)
[2017-01-26] MEDS: BUPROPION XL 300 MG T24 PO SCH (09:40)
[2017-01-26] MEDS: TAMSULOSIN HYDROCHLORIDE 0.4 MG CAP PO SCH (20:26)
[2017-01-26] MEDS: ATORVASTATIN 10 MG TAB PO SCH (20:26)
[2017-01-27] MEDS ORDERED: SODIUM CHLORIDE 0.9% 100 ML 100 ML IV ONE ×4 (02:45→20:00)
[2017-01-27] MEDS ORDERED: PIPERACILLIN/TAZOBACT 3.375 GM PDS IV ONE ×4 (02:45→20:00)
[2017-01-27] MEDS: PIPERACILLIN/TAZOBACT 3.375 GM 3.375 GM in SODIUM CHLORIDE 0.9% 100 ML 100 ML IV SCH ×4 (02:53→20:22)
[2017-01-27] MEDS: SODIUM CHLORIDE 0.9% FLUSH 10 ML SOL IV SCH ×4 (02:53→20:22)
[2017-01-27] MEDS: ALBUTEROL/IPRATROPIUM 1 VIAL SOL INH SCH ×4 (09:08→20:26)
[2017-01-27] MEDS: ASPIRIN EC 81 MG PO SCH (09:08)
[2017-01-27] MEDS: FLUTICASONE/SALMETEROL 500/50 60 PUFF DSK INH SCH ×2 (09:08→20:15)
[2017-01-27] MEDS: FUROSEMIDE 40 MG TAB PO SCH ×2 (09:10→11:31)
[2017-01-27] MEDS: FLUTICASONE PROPIONATE SPR NAS SCH (09:11)
[2017-01-27] MEDS: GUAIFENESIN 600 MG PO SCH ×2 (09:12→20:19)
[2017-01-27] MEDS: POTASSIUM CHLORIDE 10 MEQ TER PO SCH ×2 (09:12→20:17)
[2017-01-27] MEDS: METOPROLOL TARTRATE 25 MG TAB PO SCH ×2 (09:13→20:17)
[2017-01-27] MEDS: BUPROPION XL 300 MG T24 PO SCH (09:15)
[2017-01-27] MEDS: MULTIVITAMIN2 1 EA TAB PO SCH (09:15)
[2017-01-27] MEDS: ATORVASTATIN 10 MG TAB PO SCH (20:16)
[2017-01-27] MEDS: TAMSULOSIN HYDROCHLORIDE 0.4 MG CAP PO SCH (20:18)
[2017-01-27] MEDS: SODIUM CHLORIDE 0.9% FLUSH 10 ML SOL IV PRN (21:00)
[2017-01-28] MEDS ORDERED: PIPERACILLIN/TAZOBACT 3.375 GM PDS IV ONE ×4 (02:01→19:44)
[2017-01-28] MEDS ORDERED: SODIUM CHLORIDE 0.9% 100 ML 100 ML IV ONE ×4 (02:01→19:44)
[2017-01-28] MEDS: SODIUM CHLORIDE 0.9% FLUSH 10 ML SOL IV SCH ×4 (03:02→20:04)
[2017-01-28] MEDS: PIPERACILLIN/TAZOBACT 3.375 GM 3.375 GM in SODIUM CHLORIDE 0.9% 100 ML 100 ML IV SCH ×4 (03:02→20:00)
[2017-01-28] MEDS: FLUTICASONE PROPIONATE SPR NAS SCH (08:52)
[2017-01-28] MEDS: FLUTICASONE/SALMETEROL 500/50 60 PUFF DSK INH SCH ×2 (08:52→20:00)
[2017-01-28] MEDS: ALBUTEROL/IPRATROPIUM 1 VIAL SOL INH SCH ×4 (08:52→20:07)
[2017-01-28] MEDS: POTASSIUM CHLORIDE 10 MEQ TER PO SCH ×2 (08:53→20:01)
[2017-01-28] MEDS: BUPROPION XL 300 MG T24 PO SCH (08:53)
[2017-01-28] MEDS: FUROSEMIDE 40 MG TAB PO SCH ×2 (08:54→11:43)
[2017-01-28] MEDS: GUAIFENESIN 600 MG PO SCH ×2 (08:54→20:01)
[2017-01-28] MEDS: METOPROLOL TARTRATE 25 MG TAB PO SCH ×2 (08:54→20:02)
[2017-01-28] MEDS: MULTIVITAMIN2 1 EA TAB PO SCH (08:55)
[2017-01-28] MEDS: ASPIRIN EC 81 MG PO SCH (08:55)
[2017-01-28] MEDS: TAMSULOSIN HYDROCHLORIDE 0.4 MG CAP PO SCH (20:01)
[2017-01-28] MEDS: ATORVASTATIN 10 MG TAB PO SCH (20:02)
[2017-01-29] MEDS ORDERED: SODIUM CHLORIDE 0.9% 100 ML 100 ML IV ONE ×4 (02:07→20:26)
[2017-01-29] MEDS ORDERED: PIPERACILLIN/TAZOBACT 3.375 GM PDS IV ONE ×4 (02:07→20:25)
[2017-01-29] MEDS: PIPERACILLIN/TAZOBACT 3.375 GM 3.375 GM in SODIUM CHLORIDE 0.9% 100 ML 100 ML IV SCH ×4 (02:50→20:32)
[2017-01-29] MEDS: SODIUM CHLORIDE 0.9% FLUSH 10 ML SOL IV SCH ×4 (02:50→20:13)
[2017-01-29 07:22] LABS: CALCIUM 8.6 mg/dl (8.5-10.1)
[2017-01-29 07:34] LABS: BASOPHILS % (AUTO) 1 % (0-3); EOSINOPHILS % (AUTO) 4 % (0-9); HEMATOCRIT 35 % (39-53); MEAN CORPUSCULAR HGB CONC 33.7 gm/dl (32.0-36.0); MEAN CORPUSCULAR VOLUME 87 fL (80-100); MONOCYTES % (AUTO) 7.8 % (0-12); NEUTROPHILS % (AUTO) 60.9 % (37-80)
[2017-01-29] MEDS: ASPIRIN EC 81 MG PO SCH (08:17)
[2017-01-29] MEDS: FLUTICASONE PROPIONATE SPR NAS SCH (08:17)
[2017-01-29] MEDS: FUROSEMIDE 40 MG TAB PO SCH ×2 (08:17→11:26)
[2017-01-29] MEDS: FLUTICASONE/SALMETEROL 500/50 60 PUFF DSK INH SCH ×2 (08:17→20:07)
[2017-01-29] MEDS: METOPROLOL TARTRATE 25 MG TAB PO SCH ×2 (08:18→20:12)
[2017-01-29] MEDS: POTASSIUM CHLORIDE 10 MEQ TER PO SCH ×2 (08:18→20:12)
[2017-01-29] MEDS: BUPROPION XL 300 MG T24 PO SCH (08:19)
[2017-01-29] MEDS: MULTIVITAMIN2 1 EA TAB PO SCH (08:19)
[2017-01-29] MEDS: ALBUTEROL/IPRATROPIUM 1 VIAL SOL INH SCH ×4 (08:54→20:07)
[2017-01-29] MEDS: GUAIFENESIN 600 MG PO SCH ×2 (09:35→20:11)
[2017-01-29] MEDS: SODIUM CHLORIDE 0.9% FLUSH 10 ML SOL IV PRN (09:38)
[2017-01-29] MEDS: TAMSULOSIN HYDROCHLORIDE 0.4 MG CAP PO SCH (20:11)
[2017-01-29] MEDS: ATORVASTATIN 10 MG TAB PO SCH (20:13)
[2017-01-30] MEDS ORDERED: PIPERACILLIN/TAZOBACT 3.375 GM PDS IV ONE ×4 (02:57→20:30)
[2017-01-30] MEDS ORDERED: SODIUM CHLORIDE 0.9% 100 ML 100 ML IV ONE ×4 (02:57→20:30)
[2017-01-30] MEDS: PIPERACILLIN/TAZOBACT 3.375 GM 3.375 GM in SODIUM CHLORIDE 0.9% 100 ML 100 ML IV SCH ×4 (03:05→20:37)
[2017-01-30] MEDS: SODIUM CHLORIDE 0.9% FLUSH 10 ML SOL IV SCH ×4 (03:40→20:33)
[2017-01-30] MEDS: FUROSEMIDE 40 MG TAB PO SCH ×2 (07:40→11:50)
[2017-01-30] MEDS: POTASSIUM CHLORIDE 10 MEQ TER PO SCH ×2 (09:46→20:36)
[2017-01-30] MEDS: MULTIVITAMIN2 1 EA TAB PO SCH (09:47)
[2017-01-30] MEDS: METOPROLOL TARTRATE 25 MG TAB PO SCH ×2 (09:47→20:36)
[2017-01-30] MEDS: ASPIRIN EC 81 MG PO SCH (09:49)
[2017-01-30] MEDS: GUAIFENESIN 600 MG PO SCH ×2 (09:51→20:34)
[2017-01-30] MEDS: FLUTICASONE PROPIONATE SPR NAS SCH (09:51)
[2017-01-30] MEDS: BUPROPION XL 300 MG T24 PO SCH (09:51)
[2017-01-30] MEDS: FLUTICASONE/SALMETEROL 500/50 60 PUFF DSK INH SCH ×2 (09:51→20:34)
[2017-01-30] MEDS: ALBUTEROL/IPRATROPIUM 1 VIAL SOL INH SCH ×4 (09:56→20:38)
[2017-01-30 10:46] VITALS: RESP 20
[2017-01-30] MEDS: TAMSULOSIN HYDROCHLORIDE 0.4 MG CAP PO SCH (20:35)
[2017-01-30] MEDS: ATORVASTATIN 10 MG TAB PO SCH (20:36)
[2017-01-31] MEDS ORDERED: PIPERACILLIN/TAZOBACT 3.375 GM PDS IV ONE ×3 (02:47→14:47)
[2017-01-31] MEDS ORDERED: SODIUM CHLORIDE 0.9% 100 ML 100 ML IV ONE ×3 (02:47→14:47)
[2017-01-31] MEDS: PIPERACILLIN/TAZOBACT 3.375 GM 3.375 GM in SODIUM CHLORIDE 0.9% 100 ML 100 ML IV SCH ×3 (02:57→15:06)
[2017-01-31] MEDS: SODIUM CHLORIDE 0.9% FLUSH 10 ML SOL IV SCH ×3 (02:57→15:06)
[2017-01-31] MEDS: POTASSIUM CHLORIDE 10 MEQ TER PO SCH (08:36)
[2017-01-31] MEDS: MULTIVITAMIN2 1 EA TAB PO SCH (08:37)
[2017-01-31] MEDS: ASPIRIN EC 81 MG PO SCH (08:37)
[2017-01-31] MEDS: METOPROLOL TARTRATE 25 MG TAB PO SCH (08:37)
[2017-01-31] MEDS: FLUTICASONE PROPIONATE SPR NAS SCH (08:37)
[2017-01-31] MEDS: FUROSEMIDE 40 MG TAB PO SCH ×2 (08:37→12:41)
[2017-01-31] MEDS: GUAIFENESIN 600 MG PO SCH (08:38)
[2017-01-31] MEDS: FLUTICASONE/SALMETEROL 500/50 60 PUFF DSK INH SCH (08:42)
[2017-01-31] MEDS: ALBUTEROL/IPRATROPIUM 1 VIAL SOL INH SCH ×2 (08:45→12:41)
[2017-01-31 08:56] VITALS: BP 119/69; TEMP 97.6
[2017-01-31 12:44] VITALS: PULSE 70
[2017-01-31] MEDS: BUPROPION XL 300 MG T24 PO SCH ×2 (12:46→13:33)
[2017-01-31 13:32] VITALS: O2SAT 100
== END 2017-01-31 16:40 | disposition home or self-care (01) | DRG 194 ==
LOC: UNDOADMIN 17:45 → ACUTE CARE 17:45
PROVIDERS: ADMIT Family Medicine; ATTEND Family Medicine
PROC: F02Z1ZZ Dressing Assessment (ICD-10-PCS; principal; 2017-01-04)
PROC: F02Z0ZZ Bathing/Showering Assessment (ICD-10-PCS; 2017-01-04)
PROC: F02Z3ZZ Grooming/Personal Hygiene Assessment (ICD-10-PCS; 2017-01-04)
PROC: F01ZDFZ Gait and/or Balance Assessment using Assistive, Adaptive, Supportive or Protective Equipment (ICD-10-PCS; 2017-01-04)
PROC: F01ZBZZ Bed Mobility Assessment (ICD-10-PCS; 2017-01-04)
PROC: F01ZCZZ Transfer Assessment (ICD-10-PCS; 2017-01-04)
DX: J18.9 Pneumonia, unspecified organism (principal); I50.22 Chronic systolic (congestive) heart failure; E11.9 Type 2 diabetes mellitus without complications; J44.0 Chronic obstructive pulmonary disease with (acute) lower respiratory infection; Z79.4 Long term (current) use of insulin; R00.0 Tachycardia, unspecified; E87.6 Hypokalemia; R33.9 Retention of urine, unspecified; R35.0 Frequency of micturition; I10 Essential (primary) hypertension
CPT/HCPCS: 36591; 51798; 71250; 80048; 81001; 82962; 84132; 85025; 87070; 87205; 93005; 93012; 94150; 94640; 94664; 94669; 99211; J1815; J2543; J3480; J7603; J7620; A6232; Q3014

== ENCOUNTER 2017-08-09 11:00 | Outpatient (CLI) | payer MEDICARE, BC | END 2017-08-09 11:01 | disposition home or self-care (01) | DRG 556 | LOC: CONVCARE 11:00 | PROVIDERS: ATTEND Orthopaedic Surgery | DX: M25.551 Pain in right hip (principal) ==

== ENCOUNTER 2017-11-05 07:12 | Inpatient (IN) | payer MEDICARE, BC ==
[2017-11-05] MEDS ORDERED: FUROSEMIDE 20mg SOL IV ONE ×2 (14:27→17:30)
[2017-11-05 14:47] LABS: CALCIUM 8.8 mg/dl (8.5-10.1); CARBON DIOXIDE 31.5 mEq/L (21-32); CREATININE 1.67 mg/dl (0.80-1.30); POTASSIUM 3.8 mMol/L (3.5-5.1)
[2017-11-05 14:49] LABS: BASOPHILS % (AUTO) 1 % (0-3); EOSINOPHILS % (AUTO) 1 % (0-9); HEMATOCRIT 47 % (39-53); LYMPHOCYTES % (AUTO) 18.9 % (10-50); MEAN CORPUSCULAR HEMOGLOBIN 32.1 pg (27.0-32.0); MEAN CORPUSCULAR HGB CONC 34.3 gm/dl (32.0-36.0); MEAN CORPUSCULAR VOLUME 94 fL (80-100); MONOCYTES % (AUTO) 9.4 % (0-12); NEUTROPHILS % (AUTO) 69.5 % (37-80)
[2017-11-05] MEDS: DOXYCYCLINE 100 MG TAB PO SCH ×2 (15:33→20:46)
[2017-11-05] MEDS: SOLUMEDROL 125 MG/2 ML 125 MG/2 ML PDS IV SCH ×2 (15:34→20:47)
[2017-11-05] MEDS ORDERED: ALBUTEROL NEB SOL 2.5MG/3ML 1 VIAL SOL NEB PRN (17:30)
[2017-11-05] MEDS: ALBUTEROL/IPRATROPIUM 1 VIAL SOL INH SCH ×2 (18:33→23:54)
[2017-11-05] MEDS: SODIUM CHLORIDE 0.9% FLUSH 10 ML SOL IV SCH ×2 (18:33→23:54)
[2017-11-05] MEDS: TAMSULOSIN HYDROCHLORIDE 0.4 MG CAP PO SCH (20:46)
[2017-11-05] MEDS: Non-Formulary Medication MISC (Fluticasone/Salmeterol 500/50 1 PUFF) INH SCH (20:49)
[2017-11-05] MEDS: METOPROLOL TARTRATE 25 MG TAB PO SCH (20:49)
[2017-11-05] MEDS: ATORVASTATIN 10 MG TAB PO SCH (20:49)
[2017-11-06] MEDS: SOLUMEDROL 125 MG/2 ML 125 MG/2 ML PDS IV SCH (02:50)
[2017-11-06] MEDS: SODIUM CHLORIDE 0.9% FLUSH 10 ML SOL IV SCH ×6 (02:50→23:50)
[2017-11-06] MEDS: ALBUTEROL/IPRATROPIUM 1 VIAL SOL INH SCH ×4 (05:35→23:50)
[2017-11-06 07:07] LABS: HEMATOCRIT 41 % (39-53); MEAN CORPUSCULAR HEMOGLOBIN 31.3 pg (27.0-32.0); MEAN CORPUSCULAR HGB CONC 33.9 gm/dl (32.0-36.0); MEAN CORPUSCULAR VOLUME 92 fL (80-100)
[2017-11-06 07:12] LABS: CALCIUM 8.7 mg/dl (8.5-10.1); CREATININE 1.6 mg/dl (0.80-1.30); POTASSIUM 3.9 mMol/L (3.5-5.1)
[2017-11-06 07:22] LABS: BAND NEUTROPHILS % (MANUAL) 4 %; BASOPHILS % (MANUAL) 0 % (0-3); EOSINOPHILS % (MANUAL) 0 % (0-9); LYMPHOCYTES % (MANUAL) 11 % (10-50); MONOCYTES % (MANUAL) 3 % (0-12); NEUTROPHILS % (MANUAL) 82 % (37-80)
[2017-11-06 07:23] LABS: NORMAL RBCS PRESENT
[2017-11-06] MEDS: DOXYCYCLINE 100 MG TAB PO SCH ×2 (08:37→20:57)
[2017-11-06] MEDS: METOPROLOL TARTRATE 25 MG TAB PO SCH ×2 (08:37→21:30)
[2017-11-06] MEDS: ASPIRIN EC 81 MG PO SCH (08:38)
[2017-11-06] MEDS: POTASSIUM CHLORIDE 10 MEQ TER PO SCH (08:39)
[2017-11-06] MEDS: PREDNISONE 20 MG TAB PO SCH (08:43)
[2017-11-06] MEDS: HUMALOG PEN 100 U/ML SC SCH ×4 (08:46→21:07)
[2017-11-06] MEDS ORDERED: Non-Formulary Medication MISC (Fluticasone Propionate 2 SPR) NAS SCH (09:00)
[2017-11-06] MEDS ORDERED: FUROSEMIDE 40 MG SOL IV SCH ×2 (09:00→14:00)
[2017-11-06] MEDS: Non-Formulary Medication MISC (Fluticasone/Salmeterol 500/50 1 PUFF) INH SCH (09:42)
[2017-11-06] MEDS: BUPROPION XL 300 MG T24 PO SCH (10:51)
[2017-11-06] MEDS: Non-Formulary Medication MISC (Umeclidinium Bromide [Incruse Ellipta] 1 PUFF) IH SCH (11:16)
[2017-11-06] MEDS: FLUTICASONE/SALMETEROL 500/50 60 PUFF DSK INH SCH ×2 (11:16→21:06)
[2017-11-06] MEDS: FLUTICASONE PROPIONATE SPR NAS SCH (11:17)
[2017-11-06] MEDS: TAMSULOSIN HYDROCHLORIDE 0.4 MG CAP PO SCH (20:57)
[2017-11-06] MEDS: ATORVASTATIN 10 MG TAB PO SCH (21:02)
[2017-11-07] MEDS: ALBUTEROL/IPRATROPIUM 1 VIAL SOL INH SCH ×2 (05:51→08:23)
[2017-11-07] MEDS: SODIUM CHLORIDE 0.9% FLUSH 10 ML SOL IV SCH ×2 (05:52→06:33)
[2017-11-07 06:00] VITALS: RESP 20
[2017-11-07] MEDS: HUMALOG PEN 100 U/ML SC SCH (06:00)
[2017-11-07 08:29] VITALS: PULSE 96; O2SAT 97
[2017-11-07 08:31] LABS: CALCIUM 8.5 mg/dl (8.5-10.1); CARBON DIOXIDE 30.1 mEq/L (21-32); CREATININE 1.45 mg/dl (0.80-1.30); POTASSIUM 3.8 mMol/L (3.5-5.1)
[2017-11-07 09:08] VITALS: TEMP 97.6
[2017-11-07 09:09] VITALS: BP 128/73
[2017-11-07] MEDS: FLUTICASONE/SALMETEROL 500/50 60 PUFF DSK INH SCH (09:09)
[2017-11-07] MEDS: DOXYCYCLINE 100 MG TAB PO SCH (09:10)
[2017-11-07] MEDS: ASPIRIN EC 81 MG PO SCH (09:10)
[2017-11-07] MEDS: Non-Formulary Medication MISC (Umeclidinium Bromide [Incruse Ellipta] 1 PUFF) IH SCH (09:10)
[2017-11-07] MEDS: FLUTICASONE PROPIONATE SPR NAS SCH (09:11)
[2017-11-07] MEDS: POTASSIUM CHLORIDE 10 MEQ TER PO SCH (09:11)
[2017-11-07] MEDS: PREDNISONE 20 MG TAB PO SCH (09:11)
[2017-11-07] MEDS: BUPROPION XL 300 MG T24 PO SCH (09:12)
[2017-11-07] MEDS: METOPROLOL TARTRATE 25 MG TAB PO SCH (09:12)
== END 2017-11-07 10:15 | disposition home or self-care (01) | DRG 982 ==
LOC: WOUND 07:12 → ACUTE CARE 14:16
PROVIDERS: ADMIT Family Medicine; ATTEND Nurse Practitioner
PROC: 0HRMXK3 Replacement of Right Foot Skin with Nonautologous Tissue Substitute, Full Thickness, External Approach (ICD-10-PCS; principal; 2017-11-05)
DX: L97.412 Non-pressure chronic ulcer of right heel and midfoot with fat layer exposed (principal); J44.1 Chronic obstructive pulmonary disease with (acute) exacerbation; I50.9 Heart failure, unspecified; I50.22 Chronic systolic (congestive) heart failure; L97.512 Non-pressure chronic ulcer of other part of right foot with fat layer exposed; Z99.81 Dependence on supplemental oxygen; Z87.891 Personal history of nicotine dependence; S41.111D Laceration without foreign body of right upper arm, subsequent encounter; E11.9 Type 2 diabetes mellitus without complications; S61.412A Laceration without foreign body of left hand, initial encounter
CPT/HCPCS: 15275; 36415; 71045; 80048; 82962; 83880; 85007; 85025; 85027; 93005; 93306; 94640; 94669; 94762; 97597; 99213; J1815; J1940; J2930; J7613; A6232; A9270-GY; Q4137

== ENCOUNTER 2017-12-07 15:31 | Inpatient (IN) | payer MEDICARE, BC ==
[2017-12-07] MEDS ORDERED: ALBUTEROL NEB SOL 2.5MG/3ML 1 VIAL SOL NEB PRN (15:40)
[2017-12-07] MEDS ORDERED: SODIUM CHLORIDE 0.9% FLUSH 10 ML SOL IV SCH (16:00)
[2017-12-07] MEDS ORDERED: FUROSEMIDE 20mg SOL IV SCH (16:00)
[2017-12-07] MEDS ORDERED: FUROSEMIDE 20mg SOL IV ONE (17:15)
[2017-12-07] MEDS: SODIUM CHLORIDE 0.9% FLUSH 10 ML SOL IV SCH ×2 (17:38→20:49)
[2017-12-07] MEDS ORDERED: ALBUTEROL HFA 60 PUFF/INHALER INH PRN (17:41)
[2017-12-07] MEDS ORDERED: ROFLUMILAST 250 MCG PO SCH (17:45)
[2017-12-07] MEDS ORDERED: FUROSEMIDE 20mg SOL IV PRN (18:18)
[2017-12-07] MEDS: GUAIFENESIN 200 MG/10 ML SOL PO SCH (20:46)
[2017-12-07] MEDS: AMOXIL/CLAVULANATE 400/5 ML PDR PO SCH (20:47)
[2017-12-07] MEDS: ACETAMINOPHEN 325 MG PO SCH (20:48)
[2017-12-07] MEDS: DOXYCYCLINE 100 MG TAB PO SCH (20:48)
[2017-12-07] MEDS: FLUTICASONE/SALMETEROL 500/50 60 PUFF DSK INH SCH (20:48)
[2017-12-07] MEDS: TAMSULOSIN HYDROCHLORIDE 0.4 MG CAP PO SCH (20:48)
[2017-12-07] MEDS: ATORVASTATIN 10 MG TAB PO SCH (20:49)
[2017-12-07] MEDS: ALBUTEROL NEB SOL 2.5MG/3ML 1 VIAL SOL NEB PRN (20:56)
[2017-12-07] MEDS ORDERED: ACETAMINOPHEN 325 MG PO SCH (21:00)
[2017-12-07] MEDS ORDERED: DOXYCYCLINE 100 MG TAB PO SCH (21:00)
[2017-12-08] MEDS: SODIUM CHLORIDE 0.9% FLUSH 10 ML SOL IV SCH ×4 (02:37→20:27)
[2017-12-08] MEDS: ALBUTEROL NEB SOL 2.5MG/3ML 1 VIAL SOL NEB PRN ×2 (07:19→20:31)
[2017-12-08 07:27] LABS: BASOPHILS % (AUTO) 1 % (0-3); EOSINOPHILS % (AUTO) 2 % (0-9); HEMATOCRIT 38 % (39-53); HEMOGLOBIN 13.7 gm/dl (13.5-17.7); LYMPHOCYTES % (AUTO) 15.2 % (10-50); MEAN CORPUSCULAR HEMOGLOBIN 33.2 pg (27.0-32.0); MEAN CORPUSCULAR HGB CONC 36.5 gm/dl (32.0-36.0); MEAN CORPUSCULAR VOLUME 91 fL (80-100); MONOCYTES % (AUTO) 10.4 % (0-12); NEUTROPHILS % (AUTO) 71.4 % (37-80)
[2017-12-08 07:31] LABS: CALCIUM 8.2 mg/dl (8.5-10.1); CARBON DIOXIDE 30.1 mEq/L (21-32); CREATININE 1.49 mg/dl (0.80-1.30); CRP INFLAMMATORY 2.88 mg/dl (0.00-0.33); POTASSIUM 3.5 mMol/L (3.5-5.1)
[2017-12-08] MEDS: FLUTICASONE/SALMETEROL 500/50 60 PUFF DSK INH SCH ×2 (08:33→20:29)
[2017-12-08] MEDS: ASPIRIN EC 81 MG PO SCH (08:34)
[2017-12-08] MEDS: DOXYCYCLINE 100 MG TAB PO SCH (08:34)
[2017-12-08] MEDS: LORATADINE 10 MG TAB PO SCH (08:34)
[2017-12-08] MEDS: METOPROLOL TARTRATE 25 MG TAB PO SCH (08:35)
[2017-12-08] MEDS: MULTIVITAMIN2 1 EA TAB PO SCH (08:35)
[2017-12-08] MEDS: GUAIFENESIN 200 MG/10 ML SOL PO SCH ×3 (08:35→20:28)
[2017-12-08] MEDS: POTASSIUM CHLORIDE 10 MEQ TER PO SCH (08:35)
[2017-12-08] MEDS: ACETAMINOPHEN 325 MG PO SCH ×3 (08:36→20:28)
[2017-12-08] MEDS: BUPROPION XL 300 MG T24 PO SCH (08:36)
[2017-12-08] MEDS: AMOXIL/CLAVULANATE 400/5 ML PDR PO SCH (08:41)
[2017-12-08] MEDS: Non-Formulary Medication MISC (Umeclidinium Bromide [Incruse Ellipta] 1 PUFF) IH SCH (08:43)
[2017-12-08] MEDS ORDERED: BUPROPION HCL 200 MG T12 PO SCH (09:00)
[2017-12-08] MEDS ORDERED: AMOXIL/CLAVULANATE 875/125 TAB PO SCH (09:00)
[2017-12-08] MEDS ORDERED: ASPIRIN EC 81 MG PO SCH (09:00)
[2017-12-08] MEDS ORDERED: VANCOMYCIN HCL 500 MG PDS 1,000 MG in SODIUM CHLORIDE 0.9% 250 ML 250 ML IV SCH (09:15)
[2017-12-08] MEDS ORDERED: SODIUM CHLORIDE 0.9% 250 ML 250 ML IV ONE (10:17)
[2017-12-08] MEDS ORDERED: VANCOMYCIN HYDROCHLORIDE 500 MG PDS IV ONE (10:17)
[2017-12-08] MEDS: FUROSEMIDE 20mg SOL IV SCH ×2 (10:30→17:28)
[2017-12-08] MEDS: LEVOFLOXACIN 500 MG TAB PO SCH (10:31)
[2017-12-08] MEDS: ENOXAPARIN 40 MG SOL SC SCH (10:38)
[2017-12-08] MEDS: FLUTICASONE PROPIONATE SPR NAS SCH (12:19)
[2017-12-08] MEDS: ROFLUMILAST 250 MCG PO SCH (12:20)
[2017-12-08] MEDS: ATORVASTATIN 10 MG TAB PO SCH (20:28)
[2017-12-08] MEDS: TAMSULOSIN HYDROCHLORIDE 0.4 MG CAP PO SCH (20:28)
[2017-12-08] MEDS ORDERED: FUROSEMIDE 20mg SOL IV SCH (21:00)
[2017-12-08] MEDS ORDERED: ATORVASTATIN CALCIUM 40 MG TAB PO SCH (21:00)
[2017-12-09] MEDS: SODIUM CHLORIDE 0.9% FLUSH 10 ML SOL IV SCH ×7 (03:47→20:11)
[2017-12-09 07:36] LABS: BASOPHILS % (AUTO) 1 % (0-3); EOSINOPHILS % (AUTO) 3 % (0-9); HEMATOCRIT 38 % (39-53); HEMOGLOBIN 13.2 gm/dl (13.5-17.7); LYMPHOCYTES % (AUTO) 19.6 % (10-50); MEAN CORPUSCULAR HEMOGLOBIN 32.5 pg (27.0-32.0); MEAN CORPUSCULAR HGB CONC 35.2 gm/dl (32.0-36.0); MEAN CORPUSCULAR VOLUME 92 fL (80-100); MONOCYTES % (AUTO) 9.2 % (0-12); NEUTROPHILS % (AUTO) 67.2 % (37-80)
[2017-12-09 07:43] LABS: CALCIUM 8.3 mg/dl (8.5-10.1); CARBON DIOXIDE 30.7 mEq/L (21-32); CREATININE 1.43 mg/dl (0.80-1.30); CRP INFLAMMATORY 4.65 mg/dl (0.00-0.33); POTASSIUM 3.4 mMol/L (3.5-5.1)
[2017-12-09] MEDS: FUROSEMIDE 20mg SOL IV SCH ×2 (08:48→14:44)
[2017-12-09] MEDS: FLUTICASONE/SALMETEROL 500/50 60 PUFF DSK INH SCH ×2 (08:57→20:10)
[2017-12-09] MEDS: FLUTICASONE PROPIONATE SPR NAS SCH (08:57)
[2017-12-09] MEDS: Non-Formulary Medication MISC (Umeclidinium Bromide [Incruse Ellipta] 1 PUFF) IH SCH (08:59)
[2017-12-09] MEDS: BUPROPION XL 300 MG T24 PO SCH (09:00)
[2017-12-09] MEDS: GUAIFENESIN 200 MG/10 ML SOL PO SCH ×3 (09:11→20:10)
[2017-12-09] MEDS: LEVOFLOXACIN 500 MG TAB PO SCH (09:11)
[2017-12-09] MEDS: ACETAMINOPHEN 325 MG PO SCH ×3 (09:12→20:10)
[2017-12-09] MEDS: POTASSIUM CHLORIDE 10 MEQ TER PO SCH ×3 (09:12→14:43)
[2017-12-09] MEDS: LORATADINE 10 MG TAB PO SCH (09:12)
[2017-12-09] MEDS: ASPIRIN EC 81 MG PO SCH (09:12)
[2017-12-09] MEDS: METOPROLOL TARTRATE 25 MG TAB PO SCH (09:13)
[2017-12-09] MEDS: MULTIVITAMIN2 1 EA TAB PO SCH (09:13)
[2017-12-09] MEDS: ENOXAPARIN 40 MG SOL SC SCH (09:16)
[2017-12-09] MEDS ORDERED: FUROSEMIDE 40 MG SOL ONE ×2 (09:39→14:39)
[2017-12-09] MEDS ORDERED: VANCOMYCIN HYDROCHLORIDE 500 MG PDS IV ONE (09:47)
[2017-12-09] MEDS ORDERED: SODIUM CHLORIDE 0.9% 250 ML 250 ML IV ONE (09:48)
[2017-12-09] MEDS ORDERED: VANCOMYCIN HCL 500 MG PDS 1,000 MG in SODIUM CHLORIDE 0.9% 250 ML 250 ML IV SCH (10:00)
[2017-12-09] MEDS ORDERED: SODIUM CHLORIDE 0.9% 50 ML 50 ML IV ONE (11:37)
[2017-12-09] MEDS ORDERED: CEFTRIAXONE 1 GM PDS ONE (11:37)
[2017-12-09] MEDS ORDERED: CEFTRIAXONE 1 GM PDS 1 GM in SODIUM CHLORIDE 0.9% 50 ML 50 ML IV ONE (12:00)
[2017-12-09] MEDS: TAMSULOSIN HYDROCHLORIDE 0.4 MG CAP PO SCH (20:10)
[2017-12-09] MEDS: ATORVASTATIN 10 MG TAB PO SCH (20:10)
[2017-12-09] MEDS: ALBUTEROL NEB SOL 2.5MG/3ML 1 VIAL SOL NEB PRN (20:11)
[2017-12-10] MEDS: SODIUM CHLORIDE 0.9% FLUSH 10 ML SOL IV SCH ×3 (02:16→20:11)
[2017-12-10 07:27] LABS: CALCIUM 8.6 mg/dl (8.5-10.1); CARBON DIOXIDE 28.1 mEq/L (21-32); CREATININE 1.42 mg/dl (0.80-1.30); CRP INFLAMMATORY 3.63 mg/dl (0.00-0.33); POTASSIUM 3.7 mMol/L (3.5-5.1)
[2017-12-10 07:28] LABS: BASOPHILS % (AUTO) 1 % (0-3); EOSINOPHILS % (AUTO) 3 % (0-9); HEMATOCRIT 39 % (39-53); HEMOGLOBIN 13.8 gm/dl (13.5-17.7); LYMPHOCYTES % (AUTO) 21.4 % (10-50); MEAN CORPUSCULAR HEMOGLOBIN 33.2 pg (27.0-32.0); MEAN CORPUSCULAR HGB CONC 35.7 gm/dl (32.0-36.0); MEAN CORPUSCULAR VOLUME 93 fL (80-100); MONOCYTES % (AUTO) 10.2 % (0-12); NEUTROPHILS % (AUTO) 64.8 % (37-80)
[2017-12-10] MEDS: LEVOFLOXACIN 500 MG TAB PO SCH (09:48)
[2017-12-10] MEDS: METOPROLOL TARTRATE 25 MG TAB PO SCH (09:48)
[2017-12-10] MEDS: MULTIVITAMIN2 1 EA TAB PO SCH (09:48)
[2017-12-10] MEDS: LORATADINE 10 MG TAB PO SCH (09:48)
[2017-12-10] MEDS: POTASSIUM CHLORIDE 10 MEQ TER PO SCH (09:48)
[2017-12-10] MEDS: ACETAMINOPHEN 325 MG PO SCH ×3 (09:48→20:11)
[2017-12-10] MEDS: ASPIRIN EC 81 MG PO SCH (09:48)
[2017-12-10] MEDS: Non-Formulary Medication MISC (Umeclidinium Bromide [Incruse Ellipta] 1 PUFF) IH SCH (09:52)
[2017-12-10] MEDS: FLUTICASONE PROPIONATE SPR NAS SCH (09:52)
[2017-12-10] MEDS: FLUTICASONE/SALMETEROL 500/50 60 PUFF DSK INH SCH ×2 (09:52→20:11)
[2017-12-10] MEDS: BUPROPION XL 300 MG T24 PO SCH (09:53)
[2017-12-10] MEDS: FUROSEMIDE 80 MG TAB PO SCH (10:01)
[2017-12-10] MEDS: GUAIFENESIN 200 MG/10 ML SOL PO SCH ×3 (10:02→20:12)
[2017-12-10] MEDS: ENOXAPARIN 40 MG SOL SC SCH (10:04)
[2017-12-10] MEDS: FUROSEMIDE 40 MG TAB PO SCH (12:39)
[2017-12-10] MEDS: ROFLUMILAST 250 MCG PO SCH (12:39)
[2017-12-10] MEDS ORDERED: LIDOCAINE 4% CREAM TP SCH (14:15)
[2017-12-10] MEDS: FUROSEMIDE 20mg SOL IV SCH (18:23)
[2017-12-10] MEDS: TAMSULOSIN HYDROCHLORIDE 0.4 MG CAP PO SCH (20:11)
[2017-12-10] MEDS: ATORVASTATIN 10 MG TAB PO SCH (20:12)
[2017-12-10] MEDS: ALBUTEROL NEB SOL 2.5MG/3ML 1 VIAL SOL NEB PRN (20:18)
[2017-12-11] MEDS: SODIUM CHLORIDE 0.9% FLUSH 10 ML SOL IV SCH ×3 (04:16→16:55)
[2017-12-11 07:26] LABS: BASOPHILS % (AUTO) 1 % (0-3); EOSINOPHILS % (AUTO) 3 % (0-9); HEMATOCRIT 38 % (39-53); HEMOGLOBIN 13.5 gm/dl (13.5-17.7); LYMPHOCYTES % (AUTO) 19.9 % (10-50); MEAN CORPUSCULAR HEMOGLOBIN 32.6 pg (27.0-32.0); MEAN CORPUSCULAR HGB CONC 35.2 gm/dl (32.0-36.0); MEAN CORPUSCULAR VOLUME 93 fL (80-100); MONOCYTES % (AUTO) 10.8 % (0-12); NEUTROPHILS % (AUTO) 65.4 % (37-80)
[2017-12-11 07:40] LABS: CALCIUM 8.9 mg/dl (8.5-10.1); CARBON DIOXIDE 28.8 mEq/L (21-32); CREATININE 1.49 mg/dl (0.80-1.30); CRP INFLAMMATORY 3.27 mg/dl (0.00-0.33); POTASSIUM 3.9 mMol/L (3.5-5.1)
[2017-12-11] MEDS: ENOXAPARIN 40 MG SOL SC SCH (09:36)
[2017-12-11] MEDS: METOLAZONE 2.5 MG TAB PO SCH (09:36)
[2017-12-11] MEDS: ASPIRIN EC 81 MG PO SCH (09:37)
[2017-12-11] MEDS: ACETAMINOPHEN 325 MG PO SCH ×3 (09:38→20:28)
[2017-12-11] MEDS: METOPROLOL TARTRATE 25 MG TAB PO SCH (09:38)
[2017-12-11] MEDS: MULTIVITAMIN2 1 EA TAB PO SCH (09:38)
[2017-12-11] MEDS: LEVOFLOXACIN 500 MG TAB PO SCH (09:38)
[2017-12-11] MEDS: LORATADINE 10 MG TAB PO SCH (09:39)
[2017-12-11] MEDS: FLUTICASONE PROPIONATE SPR NAS SCH (09:39)
[2017-12-11] MEDS: POTASSIUM CHLORIDE 10 MEQ TER PO SCH (09:39)
[2017-12-11] MEDS: GUAIFENESIN 200 MG/10 ML SOL PO SCH ×3 (09:39→20:29)
[2017-12-11] MEDS: FLUTICASONE/SALMETEROL 500/50 60 PUFF DSK INH SCH ×2 (09:39→20:28)
[2017-12-11] MEDS: Non-Formulary Medication MISC (Umeclidinium Bromide [Incruse Ellipta] 1 PUFF) IH SCH (09:41)
[2017-12-11] MEDS: ALBUTEROL NEB SOL 2.5MG/3ML 1 VIAL SOL NEB PRN ×2 (09:59→20:31)
[2017-12-11] MEDS: FUROSEMIDE 80 MG TAB PO SCH (10:02)
[2017-12-11] MEDS: BUPROPION XL 300 MG T24 PO SCH (11:07)
[2017-12-11] MEDS: FUROSEMIDE 40 MG TAB PO SCH (11:59)
[2017-12-11] MEDS: TAMSULOSIN HYDROCHLORIDE 0.4 MG CAP PO SCH (20:28)
[2017-12-11] MEDS: ATORVASTATIN 10 MG TAB PO SCH (20:29)
[2017-12-11 23:42] VITALS: RESP 20; O2SAT 97
[2017-12-12] MEDS: SODIUM CHLORIDE 0.9% FLUSH 10 ML SOL IV SCH ×2 (01:45→08:53)
[2017-12-12 07:12] LABS: CALCIUM 8.5 mg/dl (8.5-10.1); CARBON DIOXIDE 29.6 mEq/L (21-32); CREATININE 1.47 mg/dl (0.80-1.30); CRP INFLAMMATORY 2.58 mg/dl (0.00-0.33); POTASSIUM 3.1 mMol/L (3.5-5.1)
[2017-12-12 07:15] LABS: BASOPHILS % (AUTO) 1 % (0-3); EOSINOPHILS % (AUTO) 3 % (0-9); HEMATOCRIT 37 % (39-53); HEMOGLOBIN 13.5 gm/dl (13.5-17.7); LYMPHOCYTES % (AUTO) 27.5 % (10-50); MEAN CORPUSCULAR HEMOGLOBIN 33.1 pg (27.0-32.0); MEAN CORPUSCULAR HGB CONC 36.2 gm/dl (32.0-36.0); MEAN CORPUSCULAR VOLUME 92 fL (80-100); MONOCYTES % (AUTO) 10.6 % (0-12); NEUTROPHILS % (AUTO) 57.5 % (37-80)
[2017-12-12 07:38] VITALS: BP 130/80; PULSE 108; TEMP 97.3
[2017-12-12] MEDS: FLUTICASONE/SALMETEROL 500/50 60 PUFF DSK INH SCH (08:49)
[2017-12-12] MEDS: LORATADINE 10 MG TAB PO SCH (08:50)
[2017-12-12] MEDS: FLUTICASONE PROPIONATE SPR NAS SCH (08:50)
[2017-12-12] MEDS: ASPIRIN EC 81 MG PO SCH (08:50)
[2017-12-12] MEDS: POTASSIUM CHLORIDE 10 MEQ TER PO SCH (08:50)
[2017-12-12] MEDS: LEVOFLOXACIN 500 MG TAB PO SCH (08:51)
[2017-12-12] MEDS: GUAIFENESIN 200 MG/10 ML SOL PO SCH (08:51)
[2017-12-12] MEDS: FUROSEMIDE 80 MG TAB PO SCH (08:51)
[2017-12-12] MEDS: METOPROLOL TARTRATE 25 MG TAB PO SCH (08:51)
[2017-12-12] MEDS: ACETAMINOPHEN 325 MG PO SCH (08:52)
[2017-12-12] MEDS: MULTIVITAMIN2 1 EA TAB PO SCH (08:52)
[2017-12-12] MEDS: Non-Formulary Medication MISC (Umeclidinium Bromide [Incruse Ellipta] 1 PUFF) IH SCH (08:52)
[2017-12-12] MEDS: METOLAZONE 2.5 MG TAB PO SCH (08:53)
[2017-12-12] MEDS: BUPROPION XL 300 MG T24 PO SCH (08:53)
[2017-12-12] MEDS: ENOXAPARIN 40 MG SOL SC SCH (09:15)
== END 2017-12-12 09:50 | disposition home or self-care (01) | DRG 292 ==
LOC: ACUTE CARE 15:37
PROVIDERS: ADMIT Family Medicine; ATTEND Family Medicine
PROC: F01M5ZZ Range of Motion and Joint Integrity Assessment of Musculoskeletal System - Whole Body (ICD-10-PCS; principal; 2017-12-10)
PROC: F02Z0ZZ Bathing/Showering Assessment (ICD-10-PCS; 2017-12-10)
PROC: F02Z2ZZ Feeding/Eating Assessment (ICD-10-PCS; 2017-12-10)
PROC: F01 Physical Rehabilitation and Diagnostic Audiology, Rehabilitation, Motor and/or Nerve Function Assessment (ICD-10-PCS; 2017-12-10)
DX: I50.22 Chronic systolic (congestive) heart failure (principal); L97.929 Non-pressure chronic ulcer of unspecified part of left lower leg with unspecified severity; L97.519 Non-pressure chronic ulcer of other part of right foot with unspecified severity; E11.9 Type 2 diabetes mellitus without complications; L03.90 Cellulitis, unspecified; J44.9 Chronic obstructive pulmonary disease, unspecified; R26.81 Unsteadiness on feet; S41.111A Laceration without foreign body of right upper arm, initial encounter; S90.424A Blister (nonthermal), right lesser toe(s), initial encounter; S41.112A Laceration without foreign body of left upper arm, initial encounter
CPT/HCPCS: 36415; 71045; 71046; 80048; 82962; 83880; 85025; 85378; 94150; 94640; 97597; 99232; J0696; J1650; J1940; J3370; J7613; A6232; A6402; A9270; A9270-GY

== ENCOUNTER 2018-02-06 06:49 | Inpatient (IN) | payer MEDICARE, BC ==
[2018-02-06] MEDS ORDERED: SODIUM CHLORIDE 0.9% 1000ML 1,000 ML IV SCH (07:30)
[2018-02-06 07:32] LABS: BASOPHILS % (AUTO) 0 % (0-3); EOSINOPHILS % (AUTO) 0 % (0-9); HEMATOCRIT 43 % (39-53); LYMPHOCYTES % (AUTO) 11.94 % (10-50); MEAN CORPUSCULAR HEMOGLOBIN 31.4 pg (27.0-32.0); MEAN CORPUSCULAR HGB CONC 32.6 gm/dl (32.0-36.0); MEAN CORPUSCULAR VOLUME 96 fL (80-100); MONOCYTES % (AUTO) 7.4 % (0-12); NEUTROPHILS % (AUTO) 80.3 % (37-80)
[2018-02-06 07:57] LABS: ALBUMIN 3.1 gm/dl (3.4-5.0); BILIRUBIN,TOTAL 0.8 mg/dl (0.2-1.0); CALCIUM 8.9 mg/dl (8.5-10.1); CARBON DIOXIDE 32.1 mEq/L (21-32); CREATININE 1.88 mg/dl (0.80-1.30); MAGNESIUM 1.7 mg/dl (1.8-2.4); TOTAL PROTEIN 6.8 gm/dl (6.4-8.2); TROP I 0.023 ng/ml (0.000-0.056)
[2018-02-06 08:01] LABS: POTASSIUM 2.9 mMol/L (3.5-5.1)
[2018-02-06] MEDS ORDERED: POTASSIUM CHLORIDE 10 MEQ TER PO ONE (08:03)
[2018-02-06] MEDS ORDERED: POTASSIUM CHLORIDE 10 MEQ TER ONE (08:05)
[2018-02-06] MEDS ORDERED: SODIUM CHLORIDE 0.9% 1000ML 1,000 ML IV ONE (08:30)
[2018-02-06 10:21] LABS: APPEARANCE,URINE Clear; BILIRUBIN,URINE NEGATIVE (NEGATIVE); COLOR,URINE Yellow; GLUCOSE, URINE (UA) NEGATIVE (NEGATIVE); KETONES,URINE NEGATIVE (NEGATIVE); LEUKOCYTE ESTERASE ,URINE NEGATIVE (NEGATIVE); NITRATE,URINE NEGATIVE (NEGATIVE); OCCULT BLOOD,URINE NEGATIVE (NEG-TRACE); PH,URINE 6.5; UROBILINOGEN,URINE 0.2 (0.2-1.0 EU)
[2018-02-06 10:34] LABS: BACTERIA NEGATIVE (< 1+); EPITHELIAL CELLS 0-3 (SQUAMOUS); RBC,URINE NEG (0-3AV/HPF); WBC,URINE 0-2 (0-5AV/HPF)
[2018-02-06] MEDS ORDERED: POTASSIUM CHLORIDE 2 MEQ/ML 40 MEQ, LIDOCAINE HCL 1% MDV 2 ML in SODIUM CHLORIDE 0.9% 5... IV ONE (12:45)
[2018-02-06] MEDS ORDERED: ALBUTEROL NEB SOL 2.5MG/3ML 1 VIAL SOL NEB PRN (12:49)
[2018-02-06] MEDS: METOPROLOL SUCCINATE 50 MG TER PO SCH (14:43)
[2018-02-06] MEDS: LEVOFLOXACIN 500 MG TAB PO SCH (14:44)
[2018-02-06] MEDS ORDERED: POTASSIUM CHLORIDE 2 MEQ/ML SOL IV ONE (14:48)
[2018-02-06] MEDS ORDERED: LIDOCAINE HCL 1% MPF 30 SOL ONE ×2 (14:48→14:49)
[2018-02-06] MEDS: GUAIFENESIN 200 MG/10 ML SOL PO SCH ×2 (15:57→21:19)
[2018-02-06] MEDS: ALBUTEROL/IPRATROPIUM 1 VIAL SOL INH SCH ×3 (16:01→21:11)
[2018-02-06] MEDS: ACETAMINOPHEN 500 MG 500 MG TAB PO PRN ×2 (17:03→22:50)
[2018-02-06] MEDS: BUPROPION XL 300 MG T24 PO SCH (17:14)
[2018-02-06] MEDS: SODIUM CHLORIDE 0.9% FLUSH 10 ML SOL IV PRN (21:19)
[2018-02-06] MEDS: ATORVASTATIN 10 MG TAB PO SCH (21:20)
[2018-02-06] MEDS: TAMSULOSIN HYDROCHLORIDE 0.4 MG CAP PO SCH (21:20)
[2018-02-06] MEDS: FLUTICASONE/SALMETEROL 500/50 60 PUFF DSK INH SCH (21:20)
[2018-02-07 07:17] LABS: CALCIUM 8.5 mg/dl (8.5-10.1); CARBON DIOXIDE 29.5 mEq/L (21-32); CREATININE 1.5 mg/dl (0.80-1.30); POTASSIUM 3.2 mMol/L (3.5-5.1)
[2018-02-07] MEDS: SODIUM CHLORIDE 0.9% FLUSH 10 ML SOL IV SCH ×4 (07:25→23:40)
[2018-02-07] MEDS ORDERED: POTASSIUM CHLORIDE 2 MEQ/ML SOL IV SCH (07:45)
[2018-02-07 08:07] LABS: HEMATOCRIT 38 % (39-53); HEMOGLOBIN 12.7 gm/dl (13.5-17.7); MEAN CORPUSCULAR HEMOGLOBIN 31.7 pg (27.0-32.0); MEAN CORPUSCULAR HGB CONC 33.3 gm/dl (32.0-36.0); MEAN CORPUSCULAR VOLUME 95 fL (80-100)
[2018-02-07] MEDS ORDERED: POTASSIUM CHLORIDE 2 MEQ/ML 40 MEQ, LIDOCAINE HCL 1% MDV 2 ML in SODIUM CHLORIDE 0.9% 5... IV ONE (08:23)
[2018-02-07 08:26] LABS: BAND NEUTROPHILS % (MANUAL) 0 %; BASOPHILS % (MANUAL) 0 % (0-3); EOSINOPHILS % (MANUAL) 0 % (0-9); LYMPHOCYTES % (MANUAL) 10 % (10-50); MONOCYTES % (MANUAL) 6 % (0-12); NEUTROPHILS % (MANUAL) 84 % (37-80); NORMAL RBCS NORMAL RBCS
[2018-02-07 08:44] LABS: CRYSTALS NEGATIVE (0-3 AVE/HPF)
[2018-02-07] MEDS: FLUTICASONE/SALMETEROL 500/50 60 PUFF DSK INH SCH ×2 (08:49→20:48)
[2018-02-07] MEDS: LEVOFLOXACIN 500 MG TAB PO SCH (08:49)
[2018-02-07] MEDS: GUAIFENESIN 200 MG/10 ML SOL PO SCH ×3 (08:49→20:30)
[2018-02-07] MEDS: BUPROPION XL 300 MG T24 PO SCH (08:50)
[2018-02-07] MEDS ORDERED: PREDNISONE 5 MG TAB ONE (08:52)
[2018-02-07] MEDS: ACETAMINOPHEN 500 MG 500 MG TAB PO PRN ×2 (08:54→16:23)
[2018-02-07] MEDS: PREDNISONE 10 MG TAB PO SCH (08:55)
[2018-02-07] MEDS ORDERED: METOPROLOL SUCCINATE 50 MG ER TAB ONE (08:58)
[2018-02-07] MEDS: ALBUTEROL/IPRATROPIUM 1 VIAL SOL INH SCH ×4 (08:58→20:52)
[2018-02-07] MEDS: METOPROLOL SUCCINATE 50 MG TER PO SCH (09:00)
[2018-02-07] MEDS ORDERED: LIDOCAINE HCL 1% MPF 30 SOL ONE (09:48)
[2018-02-07] MEDS ORDERED: POTASSIUM CHLORIDE 2 MEQ/ML SOL IV ONE (09:49)
[2018-02-07] MEDS: SODIUM CHLORIDE 0.9% FLUSH 10 ML SOL IV PRN (10:00)
[2018-02-07 17:49] LABS: CALCIUM 8.7 mg/dl (8.5-10.1); CARBON DIOXIDE 31.1 mEq/L (21-32); CREATININE 1.48 mg/dl (0.80-1.30); POTASSIUM 3.7 mMol/L (3.5-5.1)
[2018-02-07] MEDS: ATORVASTATIN 10 MG TAB PO SCH (20:47)
[2018-02-07] MEDS: TAMSULOSIN HYDROCHLORIDE 0.4 MG CAP PO SCH (20:48)
[2018-02-08 07:25] LABS: BASOPHILS % (AUTO) 0 % (0-3); EOSINOPHILS % (AUTO) 1 % (0-9); HEMATOCRIT 38 % (39-53); HEMOGLOBIN 12.5 gm/dl (13.5-17.7); LYMPHOCYTES % (AUTO) 11.54 % (10-50); MEAN CORPUSCULAR HEMOGLOBIN 31.4 pg (27.0-32.0); MEAN CORPUSCULAR HGB CONC 32.8 gm/dl (32.0-36.0); MEAN CORPUSCULAR VOLUME 96 fL (80-100); MONOCYTES % (AUTO) 8.4 % (0-12); NEUTROPHILS % (AUTO) 79.2 % (37-80)
[2018-02-08 07:33] LABS: CALCIUM 8.7 mg/dl (8.5-10.1); CARBON DIOXIDE 28.8 mEq/L (21-32); CREATININE 1.14 mg/dl (0.80-1.30)
[2018-02-08] MEDS ORDERED: POTASSIUM CHLORIDE 2 MEQ/ML 40 MEQ, LIDOCAINE HCL 1% MDV 2 ML in SODIUM CHLORIDE 0.9% 5... IV ONE (09:19)
[2018-02-08] MEDS ORDERED: MAGNESIUM HYDROXIDE 30 ML SUS PO PRN (09:22)
[2018-02-08] MEDS: ALBUTEROL/IPRATROPIUM 1 VIAL SOL INH SCH ×4 (09:47→21:23)
[2018-02-08] MEDS ORDERED: POTASSIUM CHLORIDE 2 MEQ/ML SOL IV ONE (09:55)
[2018-02-08] MEDS: GUAIFENESIN 200 MG/10 ML SOL PO SCH ×3 (10:00→21:22)
[2018-02-08] MEDS: DOCUSATE SODIUM 100 MG SGL PO PRN (10:00)
[2018-02-08] MEDS: BUPROPION XL 300 MG T24 PO SCH (10:00)
[2018-02-08] MEDS: LEVOFLOXACIN 500 MG TAB PO SCH (10:01)
[2018-02-08] MEDS: METOPROLOL SUCCINATE 50 MG TER PO SCH (10:01)
[2018-02-08] MEDS: FLUTICASONE/SALMETEROL 500/50 60 PUFF DSK INH SCH ×2 (10:01→21:28)
[2018-02-08] MEDS: SODIUM CHLORIDE 0.9% FLUSH 10 ML SOL IV SCH ×3 (10:02→22:01)
[2018-02-08] MEDS: PREDNISONE 10 MG TAB PO SCH (10:07)
[2018-02-08] MEDS: FUROSEMIDE 20 MG TAB PO SCH (12:10)
[2018-02-08] MEDS: POTASSIUM CHLORIDE 10 MEQ TER PO SCH ×2 (12:11→21:27)
[2018-02-08] MEDS ORDERED: POTASSIUM CHLORIDE 10 MEQ TER PO SCH (14:00)
[2018-02-08] MEDS: ACETAMINOPHEN 500 MG 500 MG TAB PO PRN ×2 (16:58→23:23)
[2018-02-08 17:13] LABS: CALCIUM 9.1 mg/dl (8.5-10.1); CARBON DIOXIDE 30.3 mEq/L (21-32); CREATININE 1.21 mg/dl (0.80-1.30); POTASSIUM 4.3 mMol/L (3.5-5.1)
[2018-02-08] MEDS: ATORVASTATIN 10 MG TAB PO SCH (21:23)
[2018-02-08] MEDS: TAMSULOSIN HYDROCHLORIDE 0.4 MG CAP PO SCH (21:23)
[2018-02-09] MEDS: SODIUM CHLORIDE 0.9% FLUSH 10 ML SOL IV SCH ×4 (05:55→23:59)
[2018-02-09 07:37] LABS: BASOPHILS % (AUTO) 0 % (0-3); EOSINOPHILS % (AUTO) 0 % (0-9); HEMATOCRIT 40 % (39-53); HEMOGLOBIN 12.9 gm/dl (13.5-17.7); LYMPHOCYTES % (AUTO) 14.58 % (10-50); MEAN CORPUSCULAR HEMOGLOBIN 31.5 pg (27.0-32.0); MEAN CORPUSCULAR HGB CONC 32.5 gm/dl (32.0-36.0); MEAN CORPUSCULAR VOLUME 97 fL (80-100); MONOCYTES % (AUTO) 8.3 % (0-12); NEUTROPHILS % (AUTO) 76.2 % (37-80)
[2018-02-09 07:48] LABS: CALCIUM 8.9 mg/dl (8.5-10.1); CARBON DIOXIDE 30.1 mEq/L (21-32); CREATININE 1.13 mg/dl (0.80-1.30); POTASSIUM 3.7 mMol/L (3.5-5.1)
[2018-02-09] MEDS: ACETAMINOPHEN 500 MG 500 MG TAB PO PRN ×2 (09:28→18:02)
[2018-02-09] MEDS: FLUTICASONE/SALMETEROL 500/50 60 PUFF DSK INH SCH ×2 (09:28→20:36)
[2018-02-09] MEDS: DOCUSATE SODIUM 100 MG SGL PO PRN (09:30)
[2018-02-09] MEDS: LEVOFLOXACIN 500 MG TAB PO SCH (09:30)
[2018-02-09] MEDS: GUAIFENESIN 200 MG/10 ML SOL PO SCH ×3 (09:31→20:38)
[2018-02-09] MEDS: PREDNISONE 10 MG TAB PO SCH (09:31)
[2018-02-09] MEDS: BUPROPION XL 300 MG T24 PO SCH (09:34)
[2018-02-09] MEDS: METOPROLOL SUCCINATE 50 MG TER PO SCH (09:35)
[2018-02-09] MEDS: ALBUTEROL/IPRATROPIUM 1 VIAL SOL INH SCH ×4 (10:01→20:38)
[2018-02-09] MEDS: FUROSEMIDE 20 MG TAB PO SCH ×2 (10:19→12:33)
[2018-02-09] MEDS: POTASSIUM CHLORIDE 10 MEQ TER PO SCH ×3 (11:39→20:36)
[2018-02-09] MEDS: POLYETHYLENE GLYCOL 17 GM/1 TBS PDS PO SCH (11:46)
[2018-02-09] MEDS: ATORVASTATIN 10 MG TAB PO SCH (20:35)
[2018-02-09] MEDS: TAMSULOSIN HYDROCHLORIDE 0.4 MG CAP PO SCH (20:36)
[2018-02-10] MEDS: ACETAMINOPHEN 500 MG 500 MG TAB PO PRN ×3 (01:45→21:32)
[2018-02-10] MEDS: SODIUM CHLORIDE 0.9% FLUSH 10 ML SOL IV SCH ×2 (06:54→21:17)
[2018-02-10 07:32] LABS: CALCIUM 8.8 mg/dl (8.5-10.1); CREATININE 1.22 mg/dl (0.80-1.30); POTASSIUM 3.5 mMol/L (3.5-5.1)
[2018-02-10 07:38] LABS: BASOPHILS % (AUTO) 0 % (0-3); CARBON DIOXIDE 31.4 mEq/L (21-32); EOSINOPHILS % (AUTO) 1 % (0-9); HEMATOCRIT 41 % (39-53); HEMOGLOBIN 13.1 gm/dl (13.5-17.7); LYMPHOCYTES % (AUTO) 17.99 % (10-50); MEAN CORPUSCULAR HEMOGLOBIN 31.4 pg (27.0-32.0); MEAN CORPUSCULAR HGB CONC 32.4 gm/dl (32.0-36.0); MEAN CORPUSCULAR VOLUME 97 fL (80-100); MONOCYTES % (AUTO) 8.7 % (0-12); NEUTROPHILS % (AUTO) 72.3 % (37-80)
[2018-02-10] MEDS: FLUTICASONE/SALMETEROL 500/50 60 PUFF DSK INH SCH ×2 (10:20→21:18)
[2018-02-10] MEDS: LEVOFLOXACIN 500 MG TAB PO SCH (10:21)
[2018-02-10] MEDS: POTASSIUM CHLORIDE 10 MEQ TER PO SCH ×2 (10:21→21:18)
[2018-02-10] MEDS: FUROSEMIDE 20 MG TAB PO SCH ×2 (10:21→12:50)
[2018-02-10] MEDS: PREDNISONE 10 MG TAB PO SCH (10:22)
[2018-02-10] MEDS: ROFLUMILAST 500 MCG PO SCH (10:22)
[2018-02-10] MEDS: BUPROPION XL 300 MG T24 PO SCH (10:23)
[2018-02-10] MEDS: METOPROLOL SUCCINATE 50 MG TER PO SCH (10:24)
[2018-02-10] MEDS: ALBUTEROL/IPRATROPIUM 1 VIAL SOL INH SCH ×4 (10:25→21:19)
[2018-02-10] MEDS: GUAIFENESIN 200 MG/10 ML SOL PO SCH ×3 (10:36→21:19)
[2018-02-10] MEDS: POLYETHYLENE GLYCOL 17 GM/1 TBS PDS PO SCH (10:36)
[2018-02-10] MEDS ORDERED: PREDNISONE 10 MG TAB PO SCH (14:25)
[2018-02-10] MEDS: TAMSULOSIN HYDROCHLORIDE 0.4 MG CAP PO SCH (21:18)
[2018-02-10] MEDS: ATORVASTATIN 10 MG TAB PO SCH (21:19)
[2018-02-11] MEDS: ACETAMINOPHEN 500 MG 500 MG TAB PO PRN ×2 (04:44→12:20)
[2018-02-11 08:12] VITALS: BP 128/79; TEMP 97.5
[2018-02-11 08:44] LABS: CALCIUM 8.9 mg/dl (8.5-10.1); CARBON DIOXIDE 31.9 mEq/L (21-32); CREATININE 1.3 mg/dl (0.80-1.30); POTASSIUM 3.9 mMol/L (3.5-5.1)
[2018-02-11 09:00] LABS: HEMATOCRIT 41 % (39-53); HEMOGLOBIN 13.8 gm/dl (13.5-17.7); MEAN CORPUSCULAR HEMOGLOBIN 32.1 pg (27.0-32.0); MEAN CORPUSCULAR HGB CONC 33.4 gm/dl (32.0-36.0); MEAN CORPUSCULAR VOLUME 96 fL (80-100)
[2018-02-11] MEDS: ALBUTEROL/IPRATROPIUM 1 VIAL SOL INH SCH ×2 (09:20→13:39)
[2018-02-11] MEDS: POTASSIUM CHLORIDE 10 MEQ TER PO SCH (09:21)
[2018-02-11] MEDS: FLUTICASONE/SALMETEROL 500/50 60 PUFF DSK INH SCH (09:21)
[2018-02-11 09:22] LABS: BAND NEUTROPHILS % (MANUAL) 0 %; BASOPHILS % (MANUAL) 0 % (0-3); EOSINOPHILS % (MANUAL) 0 % (0-9); LYMPHOCYTES % (MANUAL) 9 % (10-50); MONOCYTES % (MANUAL) 6 % (0-12); NEUTROPHILS % (MANUAL) 85 % (37-80)
[2018-02-11] MEDS: LEVOFLOXACIN 500 MG TAB PO SCH (09:22)
[2018-02-11] MEDS: GUAIFENESIN 200 MG/10 ML SOL PO SCH ×2 (09:22→13:57)
[2018-02-11] MEDS: FUROSEMIDE 20 MG TAB PO SCH (09:22)
[2018-02-11 09:23] LABS: ANISOCYTOSIS SLIGHT; POIKILOCYTOSIS SLIGHT
[2018-02-11] MEDS: ROFLUMILAST 500 MCG PO SCH (09:23)
[2018-02-11] MEDS: BUPROPION XL 300 MG T24 PO SCH (09:24)
[2018-02-11] MEDS: POLYETHYLENE GLYCOL 17 GM/1 TBS PDS PO SCH (09:27)
[2018-02-11] MEDS: METOPROLOL SUCCINATE 50 MG TER PO SCH (09:28)
[2018-02-11] MEDS ORDERED: FUROSEMIDE 40 MG TAB PO SCH (12:00)
[2018-02-11] MEDS ORDERED: LACTULOSE 10 GM/15 ML SOL PO PRN (13:07)
[2018-02-11 13:42] VITALS: RESP 24
[2018-02-11 13:57] VITALS: PULSE 112; O2SAT 98
[2018-02-12] MEDS ORDERED: PREDNISONE 5 MG TAB PO SCH (09:00)
== END 2018-02-11 15:00 | DRG 641 ==
LOC: ED 06:49 → UNDOADMIN 12:05 → ACUTE CARE 12:05
PROVIDERS: ADMIT Family Medicine; ATTEND Family Medicine
DX: R42 Dizziness and giddiness (principal); S50.811A Abrasion of right forearm, initial encounter; E87.6 Hypokalemia; I45.4 Nonspecific intraventricular block; I50.9 Heart failure, unspecified; I10 Essential (primary) hypertension; W19.XXXA Unspecified fall, initial encounter; J44.9 Chronic obstructive pulmonary disease, unspecified; S51.011A Laceration without foreign body of right elbow, initial encounter; L89.892 Pressure ulcer of other site, stage 2; L97.512 Non-pressure chronic ulcer of other part of right foot with fat layer exposed; S80.812A Abrasion, left lower leg, initial encounter; S91.112A Laceration without foreign body of left great toe without damage to nail, initial encounter; S51.811A Laceration without foreign body of right forearm, initial encounter; S61.511A Laceration without foreign body of right wrist, initial encounter; S91.115A Laceration without foreign body of left lesser toe(s) without damage to nail, initial encounter
CPT/HCPCS: 36415; 51798; 70450; 71045; 73660; 80048; 80053; 81001; 82800; 83735; 83880; 84132; 84484; 85007; 85025; 85027; 87040; 87070; 87205; 93005; 93012; 94150; 94640; 94669; 96365; 96366; 99252; 99253; 99285; 99291; J3480; A6232; A6402; A6446; A9270; A9270-GY; J2001

== ENCOUNTER 2018-06-25 08:29 | Inpatient (IN) | payer MEDICARE, BC ==
[2018-06-25] MEDS ORDERED: SODIUM CHLORIDE 0.9% 1000ML 1,000 ML IV ONE (09:22)
[2018-06-25 09:51] LABS: HEMATOCRIT 41 % (39-53); HEMOGLOBIN 13.6 gm/dl (13.5-17.7); MEAN CORPUSCULAR HEMOGLOBIN 29.5 pg (27.0-32.0); MEAN CORPUSCULAR HGB CONC 33.3 gm/dl (32.0-36.0); MEAN CORPUSCULAR VOLUME 89 fL (80-100)
[2018-06-25 10:02] LABS: CALCIUM 10.2 mg/dl (8.5-10.1); CARBON DIOXIDE 31.9 mEq/L (21-32); CREATININE 2.18 mg/dl (0.80-1.30)
[2018-06-25 10:04] LABS: POTASSIUM 2.8 mMol/L (3.5-5.1)
[2018-06-25] MEDS ORDERED: POTASSIUM CHLORIDE 10 MEQ TER ONE (10:12)
[2018-06-25] MEDS: POTASSIUM CHLORIDE 10 MEQ TER PO SCH ×5 (10:15→21:48)
[2018-06-25 10:16] LABS: BAND NEUTROPHILS % (MANUAL) 0 %; BASOPHILS % (MANUAL) 0 % (0-3); EOSINOPHILS % (MANUAL) 0 % (0-9); LYMPHOCYTES % (MANUAL) 10 % (10-50); MONOCYTES % (MANUAL) 8 % (0-12); NEUTROPHILS % (MANUAL) 82 % (37-80); NORMAL RBCS NORMAL RBCS
[2018-06-25 11:41] LABS: APPEARANCE,URINE Clear; BILIRUBIN,URINE NEGATIVE (NEGATIVE); COLOR,URINE Yellow; GLUCOSE, URINE (UA) NEGATIVE (NEGATIVE); KETONES,URINE NEGATIVE (NEGATIVE); LEUKOCYTE ESTERASE ,URINE NEGATIVE (NEGATIVE); NITRATE,URINE NEGATIVE (NEGATIVE); OCCULT BLOOD,URINE NEGATIVE (NEG-TRACE); UROBILINOGEN,URINE 0.2 (0.2-1.0 EU)
[2018-06-25 12:00] LABS: BACTERIA TRACE (< 1+); CRYSTALS NEGATIVE (0-3 AVE/HPF); EPITHELIAL CELLS NEGATIVE (SQUAMOUS); RBC,URINE NEGATIVE (0-3AV/HPF); WBC,URINE 0-1 (0-5AV/HPF)
[2018-06-25] MEDS: SODIUM CHLORIDE 0.9% 1000ML 1,000 ML IV SCH (16:28)
[2018-06-25] MEDS: TAMSULOSIN HYDROCHLORIDE 0.4 MG CAP PO SCH (21:48)
[2018-06-25] MEDS: Non-Formulary Medication MISC (Fluticasone/Salmeterol 500/50 1 PUFF) INH SCH (21:54)
[2018-06-26] MEDS: ACETAMINOPHEN 325 MG PO PRN ×2 (04:56→17:00)
[2018-06-26] MEDS: SODIUM CHLORIDE 0.9% 1000ML 1,000 ML IV SCH (04:57)
[2018-06-26 07:27] LABS: CALCIUM 8.9 mg/dl (8.5-10.1); CARBON DIOXIDE 27.3 mEq/L (21-32); CREATININE 1.65 mg/dl (0.80-1.30); POTASSIUM 3.7 mMol/L (3.5-5.1)
[2018-06-26 08:26] LABS: BASOPHILS % (AUTO) 0 % (0-3); EOSINOPHILS % (AUTO) 0 % (0-9); HEMATOCRIT 36 % (39-53); MEAN CORPUSCULAR HEMOGLOBIN 29.5 pg (27.0-32.0); MEAN CORPUSCULAR VOLUME 89 fL (80-100); MONOCYTES % (AUTO) 7.1 % (0-12); NEUTROPHILS % (AUTO) 76.9 % (37-80)
[2018-06-26] MEDS: POTASSIUM CHLORIDE 10 MEQ TER PO SCH ×2 (08:31→20:55)
[2018-06-26] MEDS: SPIRONOLACTONE 25 MG TAB PO SCH (08:31)
[2018-06-26] MEDS: ASPIRIN EC 81 MG PO SCH (08:31)
[2018-06-26] MEDS: Non-Formulary Medication MISC (Fluticasone/Salmeterol 500/50 1 PUFF) INH SCH (08:31)
[2018-06-26] MEDS: FLUOXETINE HYDROCHLORIDE 10 MG CAP PO SCH (08:32)
[2018-06-26] MEDS: ROFLUMILAST 500 MCG PO SCH (08:33)
[2018-06-26] MEDS: MULTIVITAMIN2 1 EA TAB PO SCH (08:33)
[2018-06-26] MEDS: Non-Formulary Medication MISC (Umeclidinium Bromide [Incruse Ellipta] 1 PUFF) IH SCH (08:34)
[2018-06-26] MEDS ORDERED: CEPHALEXIN 250 MG/5 ML BOTTLE PO SCH (08:45)
[2018-06-26] MEDS: ALBUTEROL NEB SOL 2.5MG/3ML 1 VIAL SOL NEB PRN ×2 (08:54→13:14)
[2018-06-26] MEDS ORDERED: FEXOFENADINE HYDROCHLORIDE 180 MG PO SCH (09:00)
[2018-06-26] MEDS ORDERED: FUROSEMIDE 20 MG TAB PO SCH (09:00)
[2018-06-26] MEDS ORDERED: Non-Formulary Medication MISC (Fluticasone Propionate 2 SPR) NAS SCH (09:00)
[2018-06-26] MEDS ORDERED: PATIENT EDUCATION 1 MISC PRN (09:13)
[2018-06-26] MEDS: CEPHALEXIN 250 MG/5 ML BOTTLE PO SCH ×2 (09:42→15:51)
[2018-06-26] MEDS: SODIUM CHLORIDE 0.9% FLUSH 10 ML SOL IV SCH ×2 (09:43→20:54)
[2018-06-26] MEDS: FUROSEMIDE 40 MG TAB PO SCH (12:09)
[2018-06-26] MEDS: BUPROPION XL 300 MG T24 PO SCH (12:10)
[2018-06-26] MEDS: FEXOFENADINE HCL 180 MG TAB PO SCH (12:11)
[2018-06-26] MEDS: FINASTERIDE 5 MG TAB PO SCH (17:01)
[2018-06-26] MEDS: ATORVASTATIN 10 MG TAB PO SCH (17:02)
[2018-06-26] MEDS: METOPROLOL SUCCINATE 50 MG TER PO SCH (17:02)
[2018-06-26] MEDS: FLUTICASONE/SALMETEROL 500/50 60 PUFF DSK INH SCH (20:54)
[2018-06-26] MEDS: TAMSULOSIN HYDROCHLORIDE 0.4 MG CAP PO SCH (20:55)
[2018-06-27] MEDS: SODIUM CHLORIDE 0.9% FLUSH 10 ML SOL IV SCH ×3 (01:08→09:46)
[2018-06-27] MEDS: CEPHALEXIN 250 MG/5 ML BOTTLE PO SCH ×3 (01:08→16:02)
[2018-06-27] MEDS: ACETAMINOPHEN 325 MG PO PRN ×4 (06:57→21:03)
[2018-06-27 07:45] LABS: BASOPHILS % (AUTO) 1 % (0-3); EOSINOPHILS % (AUTO) 1 % (0-9); HEMATOCRIT 35 % (39-53); HEMOGLOBIN 11.6 gm/dl (13.5-17.7); LYMPHOCYTES % (AUTO) 11.6 % (10-50); MEAN CORPUSCULAR HEMOGLOBIN 29.9 pg (27.0-32.0); MEAN CORPUSCULAR HGB CONC 33.4 gm/dl (32.0-36.0); MEAN CORPUSCULAR VOLUME 90 fL (80-100); MONOCYTES % (AUTO) 7.4 % (0-12); NEUTROPHILS % (AUTO) 79.2 % (37-80)
[2018-06-27 07:56] LABS: CALCIUM 8.6 mg/dl (8.5-10.1); CARBON DIOXIDE 28.5 mEq/L (21-32); CREATININE 1.5 mg/dl (0.80-1.30); POTASSIUM 3.3 mMol/L (3.5-5.1)
[2018-06-27] MEDS: FLUTICASONE/SALMETEROL 500/50 60 PUFF DSK INH SCH ×2 (09:25→21:02)
[2018-06-27] MEDS: Non-Formulary Medication MISC (Umeclidinium Bromide [Incruse Ellipta] 1 PUFF) IH SCH (09:26)
[2018-06-27] MEDS: FEXOFENADINE HCL 180 MG TAB PO SCH (09:27)
[2018-06-27] MEDS: MULTIVITAMIN2 1 EA TAB PO SCH (09:27)
[2018-06-27] MEDS: SPIRONOLACTONE 25 MG TAB PO SCH (09:27)
[2018-06-27] MEDS: FUROSEMIDE 40 MG TAB PO SCH ×2 (09:27→12:27)
[2018-06-27] MEDS: ASPIRIN EC 81 MG PO SCH (09:27)
[2018-06-27] MEDS: FLUOXETINE HYDROCHLORIDE 10 MG CAP PO SCH (09:27)
[2018-06-27] MEDS: ROFLUMILAST 500 MCG PO SCH (09:27)
[2018-06-27] MEDS: BUPROPION XL 300 MG T24 PO SCH (09:28)
[2018-06-27] MEDS: FLUTICASONE PROPIONATE SPR NAS SCH (09:28)
[2018-06-27] MEDS: POTASSIUM CHLORIDE 10 MEQ TER PO SCH ×3 (09:33→21:03)
[2018-06-27] MEDS: ALBUTEROL NEB SOL 2.5MG/3ML 1 VIAL SOL NEB PRN (16:12)
[2018-06-27] MEDS: METOPROLOL SUCCINATE 50 MG TER PO SCH (17:48)
[2018-06-27] MEDS: ATORVASTATIN 10 MG TAB PO SCH (17:48)
[2018-06-27] MEDS: FINASTERIDE 5 MG TAB PO SCH (17:49)
[2018-06-27] MEDS: TAMSULOSIN HYDROCHLORIDE 0.4 MG CAP PO SCH (21:02)
[2018-06-28] MEDS: CEPHALEXIN 250 MG/5 ML BOTTLE PO SCH ×2 (00:52→08:37)
[2018-06-28 07:43] LABS: CALCIUM 8.7 mg/dl (8.5-10.1); CARBON DIOXIDE 27.8 mEq/L (21-32); CREATININE 1.38 mg/dl (0.80-1.30); POTASSIUM 3.6 mMol/L (3.5-5.1)
[2018-06-28 07:45] LABS: BASOPHILS % (AUTO) 1 % (0-3); EOSINOPHILS % (AUTO) 1 % (0-9); HEMATOCRIT 34 % (39-53); HEMOGLOBIN 11.6 gm/dl (13.5-17.7); LYMPHOCYTES % (AUTO) 15.2 % (10-50); MEAN CORPUSCULAR HEMOGLOBIN 30.7 pg (27.0-32.0); MEAN CORPUSCULAR HGB CONC 34.1 gm/dl (32.0-36.0); MEAN CORPUSCULAR VOLUME 90 fL (80-100); MONOCYTES % (AUTO) 7.1 % (0-12); NEUTROPHILS % (AUTO) 75.4 % (37-80)
[2018-06-28 08:27] VITALS: BP 119/74; PULSE 94; RESP 18; TEMP 97.8; O2SAT 95
[2018-06-28] MEDS: FLUTICASONE/SALMETEROL 500/50 60 PUFF DSK INH SCH (08:38)
[2018-06-28] MEDS: FEXOFENADINE HCL 180 MG TAB PO SCH (08:39)
[2018-06-28] MEDS: SPIRONOLACTONE 25 MG TAB PO SCH (08:39)
[2018-06-28] MEDS: FLUTICASONE PROPIONATE SPR NAS SCH (08:40)
[2018-06-28] MEDS: FUROSEMIDE 40 MG TAB PO SCH ×2 (08:41→12:58)
[2018-06-28] MEDS: ROFLUMILAST 500 MCG PO SCH (08:41)
[2018-06-28] MEDS: POTASSIUM CHLORIDE 10 MEQ TER PO SCH (08:41)
[2018-06-28] MEDS: FLUOXETINE HYDROCHLORIDE 10 MG CAP PO SCH (08:41)
[2018-06-28] MEDS: Non-Formulary Medication MISC (Umeclidinium Bromide [Incruse Ellipta] 1 PUFF) IH SCH (08:42)
[2018-06-28] MEDS: MULTIVITAMIN2 1 EA TAB PO SCH (08:42)
[2018-06-28] MEDS: BUPROPION XL 300 MG T24 PO SCH (08:42)
[2018-06-28] MEDS: ASPIRIN EC 81 MG PO SCH (08:54)
[2018-06-28] MEDS: ACETAMINOPHEN 325 MG PO PRN (08:59)
[2018-06-28] MEDS ORDERED: TRAMADOL HYDROCHLORIDE 50 MG TAB PO PRN (10:48)
== END 2018-06-28 13:35 | DRG 699 ==
LOC: ED 08:29 → ACUTE CARE 12:38
PROVIDERS: ADMIT Family Medicine; ATTEND Family Medicine
DX: N17.9 Acute kidney failure, unspecified (principal); N28.9 Disorder of kidney and ureter, unspecified; D72.829 Elevated white blood cell count, unspecified; L03.116 Cellulitis of left lower limb; S51.812A Laceration without foreign body of left forearm, initial encounter; E87.6 Hypokalemia; J44.9 Chronic obstructive pulmonary disease, unspecified; R53.1 Weakness; I50.9 Heart failure, unspecified; I10 Essential (primary) hypertension; Z89.421 Acquired absence of other right toe(s); R06.02 Shortness of breath; L97.512 Non-pressure chronic ulcer of other part of right foot with fat layer exposed; M25.551 Pain in right hip
CPT/HCPCS: 36415; 71045; 80048; 81001; 84132; 85007; 85025; 85027; 93005; 93012; 94150; 94640; 96365; 96366; 99211; 99231; 99284; 99291; J7613; A6232; A6402; A9270; A9270-GY

== ENCOUNTER 2018-08-12 09:17 | Inpatient (IN) | payer MEDICARE, BC ==
[2018-08-12] MEDS: SODIUM CHLORIDE 0.9% FLUSH 10 ML SOL IV PRN ×2 (10:05→11:35)
[2018-08-12 10:18] LABS: BASOPHILS % (AUTO) 1 % (0-3); EOSINOPHILS % (AUTO) 1 % (0-9); HEMATOCRIT 38 % (39-53); HEMOGLOBIN 12.2 gm/dl (13.5-17.7); MEAN CORPUSCULAR HEMOGLOBIN 30.4 pg (27.0-32.0); MEAN CORPUSCULAR HGB CONC 32.3 gm/dl (32.0-36.0); MEAN CORPUSCULAR VOLUME 94 fL (80-100); NEUTROPHILS % (AUTO) 77.3 % (37-80)
[2018-08-12 10:36] LABS: ALBUMIN 2.8 gm/dl (3.4-5.0); ALKALINE PHOSPHATASE 78 IU/L (46-116); ALT 17 IU/L (14-63); AST 15 IU/L (15-37); BILIRUBIN,TOTAL 0.4 mg/dl (0.2-1.0); BLOOD UREA NITROGEN 33 mg/dl (7-18); CALCIUM 9.5 mg/dl (8.5-10.1); CARBON DIOXIDE 28.3 mEq/L (21-32); CHLORIDE 99 mMol/L (98-107); CREATININE 1.73 mg/dl (0.80-1.30); GLUCOSE 106 mg/dl (74-106); SODIUM 137 mMol/L (136-145); TROP I < 0.017 ng/ml (0.000-0.056)
[2018-08-12] MEDS ORDERED: CEFAZOLIN SODIUM 1 GM PDS 1 GM in SODIUM CHLORIDE 0.9% 50 ML 50 ML IV ONE (10:53)
[2018-08-12] MEDS ORDERED: CEFAZOLIN SODIUM 1 GM PDS ONE ×2 (10:57→20:37)
[2018-08-12] MEDS ORDERED: SODIUM CHLORIDE 0.9% 100 ML SOL IV SCH (11:15)
[2018-08-12] MEDS: SODIUM CHLORIDE 0.9% 1000ML 1,000 ML IV SCH (14:18)
[2018-08-12] MEDS: TRIAMCINOLONE 0.1% CREAM CRE TOP SCH ×2 (17:21→21:57)
[2018-08-12] MEDS: CLOTRIMAZOLE 1% CREAM TOP SCH ×2 (17:21→21:57)
[2018-08-12] MEDS ORDERED: ALBUTEROL HFA 60 PUFF/INHALER INH PRN (19:11)
[2018-08-12] MEDS ORDERED: ACETAMINOPHEN 325 MG PO PRN (19:11)
[2018-08-12] MEDS ORDERED: ALBUTEROL NEB SOL 2.5MG/3ML 1 VIAL SOL NEB PRN (19:11)
[2018-08-12] MEDS ORDERED: CEFAZOLIN (PREMIX) 1 GM 1 GM/50 ML SOL IV SCH ×2 (19:30→21:00)
[2018-08-12] MEDS: ACETAMINOPHEN 325 MG PO PRN (19:32)
[2018-08-12] MEDS ORDERED: SODIUM CHLORIDE 0.9% 50 ML 50 ML IV ONE (20:37)
[2018-08-12] MEDS ORDERED: FINASTERIDE 5 MG PO SCH (21:00)
[2018-08-12] MEDS ORDERED: METOPROLOL SUCCINATE 50 MG ER TAB ONE (21:41)
[2018-08-12] MEDS: METOPROLOL SUCCINATE 25 MG TAB.ER.24H PO SCH (21:49)
[2018-08-12] MEDS: TAMSULOSIN HYDROCHLORIDE 0.4 MG CAP PO SCH (21:50)
[2018-08-12] MEDS: Non-Formulary Medication MISC (Fluticasone/Salmeterol 500/50 1 PUFF) INH SCH (22:11)
[2018-08-13] MEDS: SODIUM CHLORIDE 0.9% 1000ML 1,000 ML IV SCH (00:58)
[2018-08-13] MEDS: ACETAMINOPHEN 325 MG PO PRN ×2 (03:00→21:50)
[2018-08-13] MEDS ORDERED: CEFAZOLIN SODIUM 1 GM PDS ONE ×3 (04:48→16:24)
[2018-08-13] MEDS ORDERED: SODIUM CHLORIDE 0.9% 50 ML 50 ML IV ONE ×3 (04:48→16:24)
[2018-08-13] MEDS: CEFAZOLIN SODIUM 1 GM PDS 1 GM in SODIUM CHLORIDE 0.9% 50 ML 50 ML IV SCH ×3 (04:54→20:41)
[2018-08-13 07:26] LABS: ALBUMIN 2.3 gm/dl (3.4-5.0); BILIRUBIN,TOTAL 0.3 mg/dl (0.2-1.0); CALCIUM 8.4 mg/dl (8.5-10.1); CARBON DIOXIDE 25.7 mEq/L (21-32); CREATININE 1.51 mg/dl (0.80-1.30); CRP INFLAMMATORY 2.91 mg/dl (0.00-0.33); POTASSIUM 3.4 mMol/L (3.5-5.1); TOTAL PROTEIN 6.6 gm/dl (6.4-8.2)
[2018-08-13 07:56] LABS: BASOPHILS % (AUTO) 1 % (0-3); EOSINOPHILS % (AUTO) 2 % (0-9); HEMATOCRIT 33 % (39-53); HEMOGLOBIN 10.8 gm/dl (13.5-17.7); LYMPHOCYTES % (AUTO) 18.9 % (10-50); MEAN CORPUSCULAR HEMOGLOBIN 30.7 pg (27.0-32.0); MEAN CORPUSCULAR HGB CONC 32.7 gm/dl (32.0-36.0); MEAN CORPUSCULAR VOLUME 94 fL (80-100); MONOCYTES % (AUTO) 6.8 % (0-12)
[2018-08-13] MEDS ORDERED: POTASSIUM CHLORIDE 10 MEQ TER PO SCH (09:00)
[2018-08-13] MEDS: TRIAMCINOLONE 0.1% CREAM CRE TOP SCH ×2 (09:29→20:40)
[2018-08-13] MEDS: POTASSIUM CHLORIDE 10 MEQ TER PO SCH ×2 (09:30→12:23)
[2018-08-13] MEDS: CLOTRIMAZOLE 1% CREAM TOP SCH ×2 (09:30→20:40)
[2018-08-13] MEDS: SPIRONOLACTONE 25 MG TAB PO SCH (09:30)
[2018-08-13] MEDS: Non-Formulary Medication MISC (Umeclidinium Bromide [Incruse Ellipta] 1 PUFF) IH SCH (09:31)
[2018-08-13] MEDS: FLUTICASONE/SALMETEROL 500/50 60 PUFF DSK INH SCH ×2 (09:32→20:31)
[2018-08-13] MEDS: ENOXAPARIN 30 MG SOL SC SCH ×2 (09:38→20:32)
[2018-08-13] MEDS: ALBUTEROL/IPRATROPIUM 1 VIAL SOL INH PRN (09:48)
[2018-08-13] MEDS: Non-Formulary Medication MISC (Fluticasone/Salmeterol 500/50 1 PUFF) INH SCH (09:52)
[2018-08-13] MEDS: LIDOCAINE 4% CREAM TP SCH (10:20)
[2018-08-13] MEDS: SODIUM CHLORIDE 0.9% FLUSH 10 ML SOL IV PRN ×2 (11:42→12:57)
[2018-08-13] MEDS: ASPIRIN EC 81 MG PO SCH (12:23)
[2018-08-13] MEDS: FLUOXETINE HYDROCHLORIDE 10 MG CAP PO SCH (12:24)
[2018-08-13] MEDS: ROFLUMILAST 500 MCG PO SCH (12:25)
[2018-08-13] MEDS: GUAIFENESIN 600 MG PO SCH (12:26)
[2018-08-13] MEDS: FEXOFENADINE HCL 180 MG TAB PO SCH (12:28)
[2018-08-13] MEDS: BUPROPION XL 300 MG T24 PO SCH (12:28)
[2018-08-13] MEDS: ATORVASTATIN 10 MG TAB PO SCH (17:46)
[2018-08-13] MEDS: TAMSULOSIN HYDROCHLORIDE 0.4 MG CAP PO SCH (20:33)
[2018-08-13] MEDS: METOPROLOL SUCCINATE 25 MG TAB.ER.24H PO SCH (20:34)
[2018-08-13] MEDS: FINASTERIDE 5 MG TAB PO SCH (20:35)
[2018-08-14] MEDS: ACETAMINOPHEN 325 MG PO PRN ×3 (01:50→20:54)
[2018-08-14] MEDS ORDERED: SODIUM CHLORIDE 0.9% 50 ML 50 ML IV ONE ×3 (05:23→19:34)
[2018-08-14] MEDS ORDERED: CEFAZOLIN SODIUM 1 GM PDS ONE ×3 (05:23→19:34)
[2018-08-14] MEDS: CEFAZOLIN SODIUM 1 GM PDS 1 GM in SODIUM CHLORIDE 0.9% 50 ML 50 ML IV SCH ×3 (05:29→20:06)
[2018-08-14 07:23] LABS: BASOPHILS % (AUTO) 1 % (0-3); EOSINOPHILS % (AUTO) 3 % (0-9); HEMATOCRIT 34 % (39-53); MEAN CORPUSCULAR HEMOGLOBIN 30.7 pg (27.0-32.0); MEAN CORPUSCULAR HGB CONC 32.8 gm/dl (32.0-36.0); MEAN CORPUSCULAR VOLUME 94 fL (80-100); MONOCYTES % (AUTO) 6.5 % (0-12); NEUTROPHILS % (AUTO) 68.7 % (37-80)
[2018-08-14 07:29] LABS: CALCIUM 8.4 mg/dl (8.5-10.1); CARBON DIOXIDE 24.7 mEq/L (21-32); CREATININE 1.34 mg/dl (0.80-1.30); CRP INFLAMMATORY 1.98 mg/dl (0.00-0.33); POTASSIUM 4.1 mMol/L (3.5-5.1)
[2018-08-14] MEDS: SPIRONOLACTONE 25 MG TAB PO SCH (08:48)
[2018-08-14] MEDS: POTASSIUM CHLORIDE 10 MEQ TER PO SCH ×2 (08:50→12:19)
[2018-08-14] MEDS: Non-Formulary Medication MISC (Umeclidinium Bromide [Incruse Ellipta] 1 PUFF) IH SCH (08:51)
[2018-08-14] MEDS: ALBUTEROL/IPRATROPIUM 1 VIAL SOL INH PRN (08:52)
[2018-08-14] MEDS: FLUTICASONE/SALMETEROL 500/50 60 PUFF DSK INH SCH ×2 (08:52→20:09)
[2018-08-14] MEDS: ENOXAPARIN 30 MG SOL SC SCH ×2 (08:56→20:06)
[2018-08-14] MEDS: ASPIRIN EC 81 MG PO SCH (12:19)
[2018-08-14] MEDS: FEXOFENADINE HCL 180 MG TAB PO SCH (12:19)
[2018-08-14] MEDS: ROFLUMILAST 500 MCG PO SCH (12:20)
[2018-08-14] MEDS: FLUOXETINE HYDROCHLORIDE 10 MG CAP PO SCH (12:20)
[2018-08-14] MEDS: GUAIFENESIN 600 MG PO SCH (12:20)
[2018-08-14] MEDS: BUPROPION XL 300 MG T24 PO SCH (12:21)
[2018-08-14] MEDS: SODIUM CHLORIDE 0.9% FLUSH 10 ML SOL IV PRN (13:22)
[2018-08-14] MEDS: LIDOCAINE 4% CREAM TP SCH (13:36)
[2018-08-14] MEDS: TRIAMCINOLONE 0.1% CREAM CRE TOP SCH ×2 (13:37→15:15)
[2018-08-14] MEDS: CLOTRIMAZOLE 1% CREAM TOP SCH ×2 (13:37→15:15)
[2018-08-14] MEDS: ATORVASTATIN 10 MG TAB PO SCH (17:53)
[2018-08-14] MEDS: FINASTERIDE 5 MG TAB PO SCH (20:09)
[2018-08-14] MEDS: TAMSULOSIN HYDROCHLORIDE 0.4 MG CAP PO SCH (20:11)
[2018-08-14] MEDS: METOPROLOL SUCCINATE 50 MG TER PO SCH (20:11)
[2018-08-15] MEDS: ACETAMINOPHEN 325 MG PO PRN ×2 (02:45→20:56)
[2018-08-15] MEDS ORDERED: SODIUM CHLORIDE 0.9% 50 ML 50 ML IV ONE ×3 (05:03→19:35)
[2018-08-15] MEDS ORDERED: CEFAZOLIN SODIUM 1 GM PDS ONE ×3 (05:03→19:35)
[2018-08-15] MEDS: CEFAZOLIN SODIUM 1 GM PDS 1 GM in SODIUM CHLORIDE 0.9% 50 ML 50 ML IV SCH ×3 (05:09→20:12)
[2018-08-15 07:15] LABS: BASOPHILS % (AUTO) 1 % (0-3); EOSINOPHILS % (AUTO) 3 % (0-9); HEMATOCRIT 34 % (39-53); LYMPHOCYTES % (AUTO) 19.6 % (10-50); MEAN CORPUSCULAR HEMOGLOBIN 30.6 pg (27.0-32.0); MEAN CORPUSCULAR HGB CONC 32.7 gm/dl (32.0-36.0); MEAN CORPUSCULAR VOLUME 93 fL (80-100); NEUTROPHILS % (AUTO) 67.9 % (37-80)
[2018-08-15 07:17] LABS: CALCIUM 7.9 mg/dl (8.5-10.1); CARBON DIOXIDE 24.3 mEq/L (21-32); CREATININE 1.25 mg/dl (0.80-1.30); CRP INFLAMMATORY 1.22 mg/dl (0.00-0.33); POTASSIUM 4.1 mMol/L (3.5-5.1)
[2018-08-15] MEDS: FLUTICASONE/SALMETEROL 500/50 60 PUFF DSK INH SCH ×2 (08:48→20:15)
[2018-08-15] MEDS: POTASSIUM CHLORIDE 10 MEQ TER PO SCH ×2 (08:49→12:15)
[2018-08-15] MEDS: SPIRONOLACTONE 25 MG TAB PO SCH (08:49)
[2018-08-15] MEDS: Non-Formulary Medication MISC (Umeclidinium Bromide [Incruse Ellipta] 1 PUFF) IH SCH (08:51)
[2018-08-15] MEDS: ENOXAPARIN 30 MG SOL SC SCH ×2 (08:56→20:17)
[2018-08-15] MEDS: ASPIRIN EC 81 MG PO SCH (12:15)
[2018-08-15] MEDS: FEXOFENADINE HCL 180 MG TAB PO SCH (12:15)
[2018-08-15] MEDS: ROFLUMILAST 500 MCG PO SCH (12:16)
[2018-08-15] MEDS: FLUOXETINE HYDROCHLORIDE 10 MG CAP PO SCH (12:16)
[2018-08-15] MEDS: GUAIFENESIN 600 MG PO SCH (12:16)
[2018-08-15] MEDS: BUPROPION XL 300 MG T24 PO SCH (12:16)
[2018-08-15] MEDS: LIDOCAINE 4% CREAM TP SCH (15:13)
[2018-08-15] MEDS: FUROSEMIDE 20 MG TAB PO SCH (15:56)
[2018-08-15] MEDS: ATORVASTATIN 10 MG TAB PO SCH (18:06)
[2018-08-15] MEDS: FINASTERIDE 5 MG TAB PO SCH (20:12)
[2018-08-15] MEDS: TAMSULOSIN HYDROCHLORIDE 0.4 MG CAP PO SCH (20:13)
[2018-08-15] MEDS: METOPROLOL SUCCINATE 50 MG TER PO SCH (20:14)
[2018-08-15] MEDS: SODIUM CHLORIDE 0.9% FLUSH 10 ML SOL IV PRN (20:56)
[2018-08-16] MEDS ORDERED: SODIUM CHLORIDE 0.9% 50 ML 50 ML IV ONE ×3 (04:42→21:12)
[2018-08-16] MEDS ORDERED: CEFAZOLIN SODIUM 1 GM PDS ONE ×3 (04:42→21:12)
[2018-08-16] MEDS: CEFAZOLIN SODIUM 1 GM PDS 1 GM in SODIUM CHLORIDE 0.9% 50 ML 50 ML IV SCH ×3 (04:50→21:17)
[2018-08-16 07:25] LABS: BASOPHILS % (AUTO) 1 % (0-3); EOSINOPHILS % (AUTO) 3 % (0-9); HEMATOCRIT 33 % (39-53); HEMOGLOBIN 11.1 gm/dl (13.5-17.7); MEAN CORPUSCULAR HEMOGLOBIN 30.9 pg (27.0-32.0); MEAN CORPUSCULAR HGB CONC 33.4 gm/dl (32.0-36.0); MEAN CORPUSCULAR VOLUME 93 fL (80-100); MONOCYTES % (AUTO) 8.3 % (0-12); NEUTROPHILS % (AUTO) 69.3 % (37-80)
[2018-08-16 07:31] LABS: CALCIUM 8.7 mg/dl (8.5-10.1); CARBON DIOXIDE 23.9 mEq/L (21-32); CREATININE 1.16 mg/dl (0.80-1.30); CRP INFLAMMATORY 1.13 mg/dl (0.00-0.33); POTASSIUM 4.1 mMol/L (3.5-5.1)
[2018-08-16] MEDS: Non-Formulary Medication MISC (Umeclidinium Bromide [Incruse Ellipta] 1 PUFF) IH SCH (07:56)
[2018-08-16] MEDS: FLUTICASONE/SALMETEROL 500/50 60 PUFF DSK INH SCH ×2 (07:56→20:59)
[2018-08-16] MEDS ORDERED: BUPIVACAINE HCL 0.5% MPF 10 ML SOL ONE (09:23)
[2018-08-16] MEDS ORDERED: PROPOFOL 10 MG/ML 200 MG/20 ML EMU IV ONE (09:23)
[2018-08-16] MEDS ORDERED: LIDOCAINE HCL 1% MPF 30 SOL ONE (09:24)
[2018-08-16] MEDS ORDERED: BACITRACIN 500 U/GM OIN TOP ONE (09:54)
[2018-08-16] MEDS: SODIUM CHLORIDE 0.9% FLUSH 10 ML SOL IV PRN (13:04)
[2018-08-16] MEDS: LIDOCAINE 4% CREAM TP SCH (13:06)
[2018-08-16] MEDS: ROFLUMILAST 500 MCG PO SCH (13:07)
[2018-08-16] MEDS: POTASSIUM CHLORIDE 10 MEQ TER PO SCH (13:29)
[2018-08-16] MEDS: SPIRONOLACTONE 25 MG TAB PO SCH (13:35)
[2018-08-16] MEDS: FUROSEMIDE 20 MG TAB PO SCH (13:43)
[2018-08-16] MEDS: FEXOFENADINE HCL 180 MG TAB PO SCH (13:43)
[2018-08-16] MEDS: GUAIFENESIN 600 MG PO SCH (13:44)
[2018-08-16] MEDS: FLUOXETINE HYDROCHLORIDE 10 MG CAP PO SCH (13:46)
[2018-08-16] MEDS: BUPROPION XL 300 MG T24 PO SCH (13:46)
[2018-08-16] MEDS: ACETAMINOPHEN 325 MG PO PRN ×2 (13:52→23:30)
[2018-08-16] MEDS: ATORVASTATIN 10 MG TAB PO SCH (17:41)
[2018-08-16] MEDS: METOPROLOL SUCCINATE 50 MG TER PO SCH (20:59)
[2018-08-16] MEDS: TAMSULOSIN HYDROCHLORIDE 0.4 MG CAP PO SCH (20:59)
[2018-08-16] MEDS: FINASTERIDE 5 MG TAB PO SCH (20:59)
[2018-08-17] MEDS: APAP/HYDROCODONE 1 EACH TABLET PO PRN ×2 (02:38→11:10)
[2018-08-17] MEDS ORDERED: CEFAZOLIN SODIUM 1 GM PDS ONE (05:33)
[2018-08-17] MEDS ORDERED: SODIUM CHLORIDE 0.9% 50 ML 50 ML IV ONE (05:33)
[2018-08-17] MEDS: CEFAZOLIN SODIUM 1 GM PDS 1 GM in SODIUM CHLORIDE 0.9% 50 ML 50 ML IV SCH (05:37)
[2018-08-17] MEDS ORDERED: FUROSEMIDE 20 MG TAB PO SCH (07:29)
[2018-08-17 08:00] LABS: HEMATOCRIT 33 % (39-53); HEMOGLOBIN 10.7 gm/dl (13.5-17.7); MEAN CORPUSCULAR HEMOGLOBIN 30.5 pg (27.0-32.0); MEAN CORPUSCULAR HGB CONC 32.8 gm/dl (32.0-36.0); MEAN CORPUSCULAR VOLUME 93 fL (80-100)
[2018-08-17 08:09] LABS: CARBON DIOXIDE 26.3 mEq/L (21-32); CREATININE 1.16 mg/dl (0.80-1.30); CRP INFLAMMATORY 1.51 mg/dl (0.00-0.33)
[2018-08-17 09:57] LABS: BAND NEUTROPHILS % (MANUAL) 3 %; BASOPHILS % (MANUAL) 0 % (0-3); EOSINOPHILS % (MANUAL) 7 % (0-9); LYMPHOCYTES % (MANUAL) 24 % (10-50); MONOCYTES % (MANUAL) 7 % (0-12); NEUTROPHILS % (MANUAL) 59 % (37-80); NORMAL RBCS PRESENT
[2018-08-17] MEDS: SPIRONOLACTONE 25 MG TAB PO SCH (09:59)
[2018-08-17] MEDS: POTASSIUM CHLORIDE 10 MEQ TER PO SCH ×2 (09:59→11:52)
[2018-08-17] MEDS: LIDOCAINE 4% CREAM TP SCH (10:00)
[2018-08-17] MEDS: FLUTICASONE/SALMETEROL 500/50 60 PUFF DSK INH SCH ×2 (10:01→21:32)
[2018-08-17] MEDS: Non-Formulary Medication MISC (Umeclidinium Bromide [Incruse Ellipta] 1 PUFF) IH SCH (10:01)
[2018-08-17] MEDS ORDERED: ENOXAPARIN 30 MG SOL SC ONE ×2 (10:06→21:35)
[2018-08-17] MEDS: ENOXAPARIN 30 MG SOL SC SCH ×2 (10:07→21:36)
[2018-08-17] MEDS: FEXOFENADINE HCL 180 MG TAB PO SCH (11:52)
[2018-08-17] MEDS: GUAIFENESIN 600 MG PO SCH (11:52)
[2018-08-17] MEDS: ASPIRIN EC 81 MG PO SCH (11:52)
[2018-08-17] MEDS: BUPROPION XL 300 MG T24 PO SCH (11:56)
[2018-08-17] MEDS: LACTOBACILLUS ACIDOPHILUS 1 CAP CAP PO SCH ×3 (12:00→21:33)
[2018-08-17] MEDS ORDERED: FLUOXETINE HYDROCHLORIDE 10 MG CAP ONE (13:06)
[2018-08-17] MEDS: FLUOXETINE HYDROCHLORIDE 10 MG CAP PO SCH (13:13)
[2018-08-17] MEDS: ROFLUMILAST 500 MCG PO SCH (13:13)
[2018-08-17] MEDS: CEPHALEXIN 250 MG/5 ML BOTTLE PO SCH ×2 (15:11→21:37)
[2018-08-17] MEDS: ATORVASTATIN 10 MG TAB PO SCH (18:41)
[2018-08-17] MEDS: METOPROLOL SUCCINATE 50 MG TER PO SCH (21:32)
[2018-08-17] MEDS: FINASTERIDE 5 MG TAB PO SCH (21:32)
[2018-08-17] MEDS: TAMSULOSIN HYDROCHLORIDE 0.4 MG CAP PO SCH (21:33)
[2018-08-18] MEDS: APAP/HYDROCODONE 1 EACH TABLET PO PRN ×3 (04:18→18:37)
[2018-08-18 07:36] LABS: BASOPHILS % (AUTO) 0 % (0-3); EOSINOPHILS % (AUTO) 3 % (0-9); HEMATOCRIT 32 % (39-53); HEMOGLOBIN 10.5 gm/dl (13.5-17.7); LYMPHOCYTES % (AUTO) 17.8 % (10-50); MEAN CORPUSCULAR HEMOGLOBIN 30.6 pg (27.0-32.0); MEAN CORPUSCULAR HGB CONC 32.6 gm/dl (32.0-36.0); MEAN CORPUSCULAR VOLUME 94 fL (80-100); MONOCYTES % (AUTO) 6.7 % (0-12); NEUTROPHILS % (AUTO) 72.5 % (37-80)
[2018-08-18 07:46] LABS: CALCIUM 8.3 mg/dl (8.5-10.1); CARBON DIOXIDE 25.5 mEq/L (21-32); CREATININE 1.12 mg/dl (0.80-1.30); CRP INFLAMMATORY 1.99 mg/dl (0.00-0.33); POTASSIUM 4.1 mMol/L (3.5-5.1)
[2018-08-18] MEDS ORDERED: ENOXAPARIN 30 MG SOL SC ONE (09:03)
[2018-08-18] MEDS: CEPHALEXIN 250 MG/5 ML BOTTLE PO SCH ×3 (09:14→20:17)
[2018-08-18] MEDS: LACTOBACILLUS ACIDOPHILUS 1 CAP CAP PO SCH ×2 (09:14→20:15)
[2018-08-18] MEDS: FLUTICASONE/SALMETEROL 500/50 60 PUFF DSK INH SCH ×2 (09:14→20:14)
[2018-08-18] MEDS: SPIRONOLACTONE 25 MG TAB PO SCH (09:15)
[2018-08-18] MEDS: POTASSIUM CHLORIDE 10 MEQ TER PO SCH ×2 (09:15→12:07)
[2018-08-18] MEDS: Non-Formulary Medication MISC (Umeclidinium Bromide [Incruse Ellipta] 1 PUFF) IH SCH (09:16)
[2018-08-18] MEDS: ENOXAPARIN 30 MG SOL SC SCH ×2 (09:20→20:16)
[2018-08-18] MEDS: FUROSEMIDE 40 MG TAB PO SCH (09:23)
[2018-08-18] MEDS: LIDOCAINE 4% CREAM TP SCH (11:10)
[2018-08-18] MEDS ORDERED: FLUOXETINE HYDROCHLORIDE 10 MG CAP ONE (12:01)
[2018-08-18] MEDS: BUPROPION XL 300 MG T24 PO SCH (12:05)
[2018-08-18] MEDS: FLUOXETINE HYDROCHLORIDE 10 MG CAP PO SCH (12:05)
[2018-08-18] MEDS: ASPIRIN EC 81 MG PO SCH (12:06)
[2018-08-18] MEDS: FEXOFENADINE HCL 180 MG TAB PO SCH (12:06)
[2018-08-18] MEDS: GUAIFENESIN 600 MG PO SCH (12:07)
[2018-08-18] MEDS: ROFLUMILAST 500 MCG PO SCH (12:09)
[2018-08-18] MEDS: ATORVASTATIN 10 MG TAB PO SCH (18:34)
[2018-08-18] MEDS ORDERED: TAMSULOSIN HYDROCHLORIDE 0.4 MG CAP ONE (20:11)
[2018-08-18] MEDS: TAMSULOSIN HYDROCHLORIDE 0.4 MG CAP PO SCH (20:15)
[2018-08-18] MEDS: METOPROLOL SUCCINATE 50 MG TER PO SCH (20:15)
[2018-08-18] MEDS: FINASTERIDE 5 MG TAB PO SCH (20:17)
[2018-08-19] MEDS: APAP/HYDROCODONE 1 EACH TABLET PO PRN ×3 (01:58→11:15)
[2018-08-19 07:35] VITALS: BP 106/62; PULSE 89; RESP 20; TEMP 97.5; O2SAT 95
[2018-08-19 08:25] LABS: CALCIUM 8.6 mg/dl (8.5-10.1); CARBON DIOXIDE 27.8 mEq/L (21-32); CREATININE 1.2 mg/dl (0.80-1.30); POTASSIUM 4.3 mMol/L (3.5-5.1)
[2018-08-19] MEDS: FLUTICASONE/SALMETEROL 500/50 60 PUFF DSK INH SCH (08:31)
[2018-08-19 08:32] LABS: BASOPHILS % (AUTO) 1 % (0-3); EOSINOPHILS % (AUTO) 2 % (0-9); HEMATOCRIT 34 % (39-53); HEMOGLOBIN 11.1 gm/dl (13.5-17.7); LYMPHOCYTES % (AUTO) 18.7 % (10-50); MEAN CORPUSCULAR HEMOGLOBIN 30.9 pg (27.0-32.0); MEAN CORPUSCULAR HGB CONC 32.8 gm/dl (32.0-36.0); MEAN CORPUSCULAR VOLUME 94 fL (80-100); MONOCYTES % (AUTO) 8.6 % (0-12); NEUTROPHILS % (AUTO) 69.7 % (37-80)
[2018-08-19] MEDS: SPIRONOLACTONE 25 MG TAB PO SCH (08:32)
[2018-08-19] MEDS: CEPHALEXIN 250 MG/5 ML BOTTLE PO SCH (08:33)
[2018-08-19] MEDS: LACTOBACILLUS ACIDOPHILUS 1 CAP CAP PO SCH (08:33)
[2018-08-19] MEDS: POTASSIUM CHLORIDE 10 MEQ TER PO SCH ×2 (08:35→11:22)
[2018-08-19] MEDS: FUROSEMIDE 40 MG TAB PO SCH (08:35)
[2018-08-19] MEDS: Non-Formulary Medication MISC (Umeclidinium Bromide [Incruse Ellipta] 1 PUFF) IH SCH (08:36)
[2018-08-19] MEDS: LIDOCAINE 4% CREAM TP SCH (08:38)
[2018-08-19] MEDS: ENOXAPARIN 30 MG SOL SC SCH (09:41)
[2018-08-19] MEDS: FEXOFENADINE HCL 180 MG TAB PO SCH (11:15)
[2018-08-19] MEDS: GUAIFENESIN 600 MG PO SCH (11:16)
[2018-08-19] MEDS: FLUOXETINE HYDROCHLORIDE 10 MG CAP PO SCH (11:17)
[2018-08-19] MEDS: ROFLUMILAST 500 MCG PO SCH (11:17)
[2018-08-19] MEDS: BUPROPION XL 300 MG T24 PO SCH (11:18)
[2018-08-19] MEDS ORDERED: POTASSIUM CHLORIDE 10 MEQ TER ONE (11:20)
[2018-08-19] MEDS ORDERED: ASPIRIN 81 MG CHEWABLE CTB ONE (11:21)
[2018-08-19] MEDS: ASPIRIN EC 81 MG PO SCH (11:21)
== END 2018-08-19 11:35 | DRG 571 ==
LOC: ED 09:17 → ACUTE CARE 11:19 → UNDOADMIN 11:19 → ACUTE CARE 11:50
PROVIDERS: ADMIT Family Medicine; ATTEND Family Medicine
PROC: 0JBQ0ZZ Excision of Right Foot Subcutaneous Tissue and Fascia, Open Approach (ICD-10-PCS; principal; 2018-08-16 09:30)
DX: L03.116 Cellulitis of left lower limb (principal); E46 Unspecified protein-calorie malnutrition; E11.9 Type 2 diabetes mellitus without complications; Z89.421 Acquired absence of other right toe(s); L30.9 Dermatitis, unspecified; L97.512 Non-pressure chronic ulcer of other part of right foot with fat layer exposed; L97.511 Non-pressure chronic ulcer of other part of right foot limited to breakdown of skin; R06.2 Wheezing; E87.6 Hypokalemia; S41.111A Laceration without foreign body of right upper arm, initial encounter
CPT/HCPCS: 36415; 71046; 73630; 80048; 80053; 82962; 84484; 85007; 85025; 85027; 93005; 94640; 96365; 99070; 99231; 99283; J0690; J7613; A6219; A6232; A6402; A6446; A9270; A9270-GY; J1650; J2001; J2704

== ENCOUNTER 2018-11-29 17:02 | Inpatient (IN) | payer MEDICARE, BC ==
[2018-11-29 17:37] LABS: ALBUMIN 2.9 gm/dl (3.4-5.0); BILIRUBIN,TOTAL 0.5 mg/dl (0.2-1.0); CARBON DIOXIDE 25.6 mEq/L (21-32); TOTAL PROTEIN 8.9 gm/dl (6.4-8.2)
[2018-11-29] MEDS: LIDOCAINE 4% CREAM TP PRN (19:06)
[2018-11-29] MEDS ORDERED: VANCOMYCIN HYDROCHLORIDE 500 MG PDS IV ONE (20:01)
[2018-11-29] MEDS ORDERED: SODIUM CHLORIDE 0.9% 250 ML 250 ML IV ONE (20:01)
[2018-11-29] MEDS: SODIUM CHLORIDE 0.9% FLUSH 10 ML SOL IV PRN (20:27)
[2018-11-29] MEDS ORDERED: VANCOMYCIN HCL 500 MG PDS 1,500 MG in SODIUM CHLORIDE 0.9% 500 ML 500 ML IV SCH (20:30)
[2018-11-29 20:34] LABS: CREATININE 2.02 mg/dl (0.80-1.30)
[2018-11-29 20:35] LABS: CALCIUM 9.6 mg/dl (8.5-10.1)
[2018-11-29] MEDS ORDERED: SODIUM CHLORIDE 0.9% IV SCH (21:00)
[2018-11-29] MEDS ORDERED: VANCOMYCIN HCL IV SCH (21:00)
[2018-11-29] MEDS ORDERED: MAGNESIUM HYDROXIDE 30 ML SUS PO PRN (21:04)
[2018-11-29] MEDS: POTASSIUM CHLORIDE 10 MEQ TER PO SCH (21:16)
[2018-11-29] MEDS ORDERED: METOPROLOL SUCCINATE 50 MG ER TAB ONE (21:41)
[2018-11-29] MEDS: GUAIFENESIN 200 MG/10 ML SOL PO SCH (21:48)
[2018-11-29] MEDS: MIRTAZAPINE 15 MG TAB PO SCH (21:49)
[2018-11-29] MEDS: ATORVASTATIN 10 MG TAB PO SCH (21:49)
[2018-11-29] MEDS: APAP/HYDROCODONE 1 EACH TABLET PO PRN (21:49)
[2018-11-29] MEDS: TAMSULOSIN HYDROCHLORIDE 0.4 MG CAP PO SCH (21:49)
[2018-11-30] MEDS: POTASSIUM CHLORIDE 10 MEQ TER PO SCH ×4 (00:01→21:49)
[2018-11-30] MEDS: APAP/HYDROCODONE 1 EACH TABLET PO PRN ×3 (03:48→20:55)
[2018-11-30 07:23] LABS: CARBON DIOXIDE 26.6 mEq/L (21-32); CREATININE 1.79 mg/dl (0.80-1.30); POTASSIUM 3.1 mMol/L (3.5-5.1)
[2018-11-30 07:54] LABS: BASOPHILS % (AUTO) 1 % (0-3); EOSINOPHILS % (AUTO) 1 % (0-9); HEMATOCRIT 36 % (39-53); HEMOGLOBIN 11.8 gm/dl (13.5-17.7); LYMPHOCYTES % (AUTO) 17.2 % (10-50); MEAN CORPUSCULAR HEMOGLOBIN 29.4 pg (27.0-32.0); MEAN CORPUSCULAR HGB CONC 33.1 gm/dl (32.0-36.0); MEAN CORPUSCULAR VOLUME 89 fL (80-100); MONOCYTES % (AUTO) 7.8 % (0-12); NEUTROPHILS % (AUTO) 73.3 % (37-80)
[2018-11-30] MEDS ORDERED: Non-Formulary Medication MISC (Fluticasone/Salmeterol 500/50 1 PUFF) INH SCH (09:00)
[2018-11-30] MEDS: FUROSEMIDE 20 MG TAB PO SCH ×2 (10:06→11:33)
[2018-11-30] MEDS: SPIRONOLACTONE 25 MG TAB PO SCH (10:06)
[2018-11-30] MEDS: LEVOFLOXACIN 500 MG TAB PO SCH (10:06)
[2018-11-30] MEDS: GUAIFENESIN 200 MG/10 ML SOL PO SCH ×3 (10:07→20:06)
[2018-11-30] MEDS: SODIUM CHLORIDE 0.9% FLUSH 10 ML SOL IV PRN ×2 (10:25→20:06)
[2018-11-30] MEDS: ROFLUMILAST 500 MCG PO SCH (11:28)
[2018-11-30] MEDS: FLUTICASONE/SALMETEROL 500/50 60 PUFF DSK INH SCH ×2 (11:30→20:04)
[2018-11-30] MEDS: FEXOFENADINE HCL 180 MG TAB PO SCH (11:31)
[2018-11-30] MEDS: FLUOXETINE HYDROCHLORIDE 10 MG CAP PO SCH (11:33)
[2018-11-30] MEDS: BUPROPION XL 300 MG T24 PO SCH (11:33)
[2018-11-30] MEDS: MULTIVITAMIN2 1 EA TAB PO SCH (11:57)
[2018-11-30] MEDS: DOCUSATE SODIUM 100 MG SGL PO PRN (11:58)
[2018-11-30] MEDS: FLUTICASONE PROPIONATE SPR NAS SCH (12:52)
[2018-11-30] MEDS ORDERED: VANCOMYCIN HYDROCHLORIDE 500 MG PDS IV ONE (19:12)
[2018-11-30] MEDS ORDERED: SODIUM CHLORIDE 0.9% 250 ML 250 ML IV ONE (19:12)
[2018-11-30] MEDS: LIDOCAINE 4% CREAM TP PRN (19:19)
[2018-11-30] MEDS: VANCOMYCIN HCL 500 MG PDS 1,000 MG in SODIUM CHLORIDE 0.9% 250 ML 250 ML IV SCH (19:34)
[2018-11-30] MEDS ORDERED: METOPROLOL SUCCINATE 50 MG ER TAB ONE (20:03)
[2018-11-30] MEDS: METOPROLOL SUCCINATE 50 MG TER PO SCH (20:04)
[2018-11-30] MEDS: MIRTAZAPINE 15 MG TAB PO SCH (20:06)
[2018-11-30] MEDS: TAMSULOSIN HYDROCHLORIDE 0.4 MG CAP PO SCH (20:06)
[2018-11-30] MEDS: ATORVASTATIN 10 MG TAB PO SCH (20:06)
[2018-11-30] MEDS ORDERED: METOPROLOL SUCCINATE 25 MG TAB.ER.24H PO SCH (21:00)
[2018-11-30] MEDS ORDERED: FINASTERIDE PO SCH (21:00)
[2018-11-30] MEDS ORDERED: FINASTERIDE 5 MG PO SCH (21:00)
[2018-12-01] MEDS: ALBUTEROL HFA 60 PUFF/INHALER INH PRN ×2 (00:28→07:58)
[2018-12-01] MEDS: POTASSIUM CHLORIDE 10 MEQ TER PO SCH ×2 (00:36→08:25)
[2018-12-01] MEDS: ALBUTEROL NEB SOL 2.5MG/3ML 1 VIAL SOL NEB PRN ×2 (04:26→20:37)
[2018-12-01] MEDS: SODIUM CHLORIDE 0.9% FLUSH 10 ML SOL IV PRN ×4 (04:36→20:31)
[2018-12-01] MEDS: APAP/HYDROCODONE 1 EACH TABLET PO PRN ×3 (07:46→21:15)
[2018-12-01 08:21] LABS: CALCIUM 9.7 mg/dl (8.5-10.1); CARBON DIOXIDE 25.9 mEq/L (21-32); CREATININE 1.58 mg/dl (0.80-1.30); HEMATOCRIT 38 % (39-53); HEMOGLOBIN 12.6 gm/dl (13.5-17.7); MEAN CORPUSCULAR HEMOGLOBIN 29.1 pg (27.0-32.0); MEAN CORPUSCULAR HGB CONC 32.9 gm/dl (32.0-36.0); MEAN CORPUSCULAR VOLUME 88 fL (80-100)
[2018-12-01] MEDS: FUROSEMIDE 20 MG TAB PO SCH ×2 (08:25→12:46)
[2018-12-01] MEDS: LEVOFLOXACIN 500 MG TAB PO SCH (08:25)
[2018-12-01] MEDS: GUAIFENESIN 200 MG/10 ML SOL PO SCH ×2 (08:25→19:31)
[2018-12-01] MEDS: SPIRONOLACTONE 25 MG TAB PO SCH (08:25)
[2018-12-01] MEDS: FLUTICASONE/SALMETEROL 500/50 60 PUFF DSK INH SCH ×2 (08:26→20:36)
[2018-12-01 08:46] LABS: BAND NEUTROPHILS % (MANUAL) 1 %; BASOPHILS % (MANUAL) 0 % (0-3); EOSINOPHILS % (MANUAL) 3 % (0-9); LYMPHOCYTES % (MANUAL) 12 % (10-50); MONOCYTES % (MANUAL) 3 % (0-12); NEUTROPHILS % (MANUAL) 81 % (37-80); NORMAL RBCS PRESENT
[2018-12-01] MEDS: FEXOFENADINE HCL 180 MG TAB PO SCH (12:46)
[2018-12-01] MEDS: BUPROPION XL 300 MG T24 PO SCH (12:47)
[2018-12-01] MEDS: MULTIVITAMIN2 1 EA TAB PO SCH (12:47)
[2018-12-01] MEDS: ROFLUMILAST 500 MCG PO SCH (12:47)
[2018-12-01] MEDS: FLUOXETINE HYDROCHLORIDE 10 MG CAP PO SCH (12:50)
[2018-12-01] MEDS: FLUTICASONE PROPIONATE SPR NAS SCH (15:20)
[2018-12-01] MEDS: ACETAMINOPHEN 325 MG PO PRN (18:04)
[2018-12-01] MEDS ORDERED: METOPROLOL SUCCINATE 50 MG ER TAB ONE (20:01)
[2018-12-01] MEDS ORDERED: VANCOMYCIN HYDROCHLORIDE 500 MG PDS IV ONE (20:01)
[2018-12-01] MEDS: VANCOMYCIN HCL 500 MG PDS 1,000 MG in SODIUM CHLORIDE 0.9% 250 ML 250 ML IV SCH (20:29)
[2018-12-01] MEDS: METOPROLOL SUCCINATE 50 MG TER PO SCH (20:35)
[2018-12-01] MEDS: TAMSULOSIN HYDROCHLORIDE 0.4 MG CAP PO SCH (20:35)
[2018-12-01] MEDS: ATORVASTATIN 10 MG TAB PO SCH (20:36)
[2018-12-01] MEDS: MIRTAZAPINE 15 MG TAB PO SCH (20:37)
[2018-12-01] MEDS ORDERED: FINASTERIDE 5 MG PO SCH (21:00)
[2018-12-01] MEDS ORDERED: FINASTERIDE 5 MG TAB PO SCH (21:00)
[2018-12-02] MEDS: APAP/HYDROCODONE 1 EACH TABLET PO PRN ×3 (03:08→17:50)
[2018-12-02] MEDS: SODIUM CHLORIDE 0.9% FLUSH 10 ML SOL IV PRN ×2 (03:09→20:32)
[2018-12-02 07:18] LABS: CALCIUM 8.8 mg/dl (8.5-10.1); CARBON DIOXIDE 27.4 mEq/L (21-32); CREATININE 1.55 mg/dl (0.80-1.30); POTASSIUM 3.5 mMol/L (3.5-5.1)
[2018-12-02 07:30] LABS: BASOPHILS % (AUTO) 1 % (0-3); EOSINOPHILS % (AUTO) 1 % (0-9); HEMATOCRIT 33 % (39-53); HEMOGLOBIN 10.9 gm/dl (13.5-17.7); LYMPHOCYTES % (AUTO) 19.1 % (10-50); MEAN CORPUSCULAR HEMOGLOBIN 29.8 pg (27.0-32.0); MEAN CORPUSCULAR HGB CONC 33.3 gm/dl (32.0-36.0); MEAN CORPUSCULAR VOLUME 90 fL (80-100); MONOCYTES % (AUTO) 7.6 % (0-12)
[2018-12-02] MEDS: ALBUTEROL NEB SOL 2.5MG/3ML 1 VIAL SOL NEB PRN ×2 (08:00→20:30)
[2018-12-02] MEDS: FLUTICASONE/SALMETEROL 500/50 60 PUFF DSK INH SCH ×2 (08:44→20:33)
[2018-12-02] MEDS: POTASSIUM CHLORIDE 10 MEQ TER PO SCH (08:44)
[2018-12-02] MEDS: LEVOFLOXACIN 500 MG TAB PO SCH (08:45)
[2018-12-02] MEDS: FUROSEMIDE 20 MG TAB PO SCH ×2 (08:45→13:03)
[2018-12-02] MEDS: SPIRONOLACTONE 25 MG TAB PO SCH (08:45)
[2018-12-02] MEDS: DOXYCYCLINE 100 MG TAB PO SCH ×2 (08:45→20:35)
[2018-12-02] MEDS: GUAIFENESIN 200 MG/10 ML SOL PO SCH (08:47)
[2018-12-02] MEDS: INCRUSE ELLIPTA INH SCH (08:47)
[2018-12-02] MEDS: ENOXAPARIN 40 MG SOL SC SCH (10:13)
[2018-12-02] MEDS: LIDOCAINE 4% CREAM TP PRN (10:39)
[2018-12-02] MEDS: ROFLUMILAST 500 MCG PO SCH (13:02)
[2018-12-02] MEDS: BUPROPION XL 300 MG T24 PO SCH (13:03)
[2018-12-02] MEDS: FLUTICASONE PROPIONATE SPR NAS SCH (13:04)
[2018-12-02] MEDS: FEXOFENADINE HCL 180 MG TAB PO SCH (13:04)
[2018-12-02] MEDS: MULTIVITAMIN2 1 EA TAB PO SCH (13:05)
[2018-12-02] MEDS: FLUOXETINE HYDROCHLORIDE 10 MG CAP PO SCH (13:05)
[2018-12-02] MEDS: ACETAMINOPHEN 325 MG PO PRN (13:08)
[2018-12-02] MEDS: DOCUSATE SODIUM 100 MG SGL PO PRN (17:50)
[2018-12-02] MEDS: TAMSULOSIN HYDROCHLORIDE 0.4 MG CAP PO SCH (20:33)
[2018-12-02] MEDS: ATORVASTATIN 10 MG TAB PO SCH (20:33)
[2018-12-02] MEDS: METOPROLOL SUCCINATE 50 MG TER PO SCH (20:34)
[2018-12-02] MEDS: MIRTAZAPINE 15 MG TAB PO SCH (20:34)
[2018-12-02] MEDS ORDERED: FINASTERIDE 5 MG TAB PO SCH (21:00)
[2018-12-03] MEDS: APAP/HYDROCODONE 1 EACH TABLET PO PRN ×2 (01:42→08:27)
[2018-12-03 07:29] LABS: CALCIUM 9.3 mg/dl (8.5-10.1); CARBON DIOXIDE 28.5 mEq/L (21-32); CREATININE 1.62 mg/dl (0.80-1.30); CRP INFLAMMATORY 7.07 mg/dl (0.00-0.33); POTASSIUM 3.9 mMol/L (3.5-5.1)
[2018-12-03 07:41] LABS: BASOPHILS % (AUTO) 1 % (0-3); EOSINOPHILS % (AUTO) 2 % (0-9); HEMATOCRIT 37 % (39-53); LYMPHOCYTES % (AUTO) 18.7 % (10-50); MEAN CORPUSCULAR HEMOGLOBIN 29.1 pg (27.0-32.0); MEAN CORPUSCULAR HGB CONC 32.6 gm/dl (32.0-36.0); MEAN CORPUSCULAR VOLUME 89 fL (80-100); MONOCYTES % (AUTO) 7.9 % (0-12)
[2018-12-03] MEDS ORDERED: FUROSEMIDE 20 MG TAB PO SCH (07:50)
[2018-12-03] MEDS: ENOXAPARIN 40 MG SOL SC SCH (08:17)
[2018-12-03] MEDS: POTASSIUM CHLORIDE 10 MEQ TER PO SCH (08:18)
[2018-12-03] MEDS: LEVOFLOXACIN 500 MG TAB PO SCH (08:19)
[2018-12-03] MEDS: SPIRONOLACTONE 25 MG TAB PO SCH (08:19)
[2018-12-03] MEDS: DOXYCYCLINE 100 MG TAB PO SCH (08:19)
[2018-12-03] MEDS: FLUTICASONE/SALMETEROL 500/50 60 PUFF DSK INH SCH (08:19)
[2018-12-03] MEDS: INCRUSE ELLIPTA INH SCH (08:19)
[2018-12-03] MEDS: GUAIFENESIN 200 MG/10 ML SOL PO SCH (08:24)
[2018-12-03 08:35] VITALS: BP 116/55; PULSE 89; RESP 18; TEMP 98.1; O2SAT 96
[2018-12-03] MEDS: LIDOCAINE 4% CREAM TP PRN (10:34)
[2018-12-03] MEDS ORDERED: FUROSEMIDE 40 MG TAB PO SCH (12:00)
== END 2018-12-03 11:00 | disposition home or self-care (01) | DRG 603 ==
LOC: ACUTE CARE 17:02
PROVIDERS: ADMIT Family Medicine; ATTEND Family Medicine
DX: L03.115 Cellulitis of right lower limb (principal); R60.0 Localized edema; N18.9 Chronic kidney disease, unspecified; S91.109D Unspecified open wound of unspecified toe(s) without damage to nail, subsequent encounter; Z89.421 Acquired absence of other right toe(s); J44.9 Chronic obstructive pulmonary disease, unspecified; I50.9 Heart failure, unspecified
CPT/HCPCS: 36415; 80048; 80053; 85007; 85025; 85027; 85651; 94150; 94640; J1650; J3370; J7613; A6232; A6402; A6446; A9270; A9270-GY

== ENCOUNTER → 2019-02-28 | Day surgery (SDC) | payer MEDICARE, BC ==
[2019-02-28 16:09] VITALS: BP 121/61; PULSE 92; RESP 22; TEMP 97.1; O2SAT 95
== END | disposition home or self-care (01) | DRG 603 ==
LOC: SURG 14:22
PROVIDERS: ATTEND Nurse Anesthetist, Certified Registered
DX: L03.115 Cellulitis of right lower limb (principal)
CPT/HCPCS: 71045